=== PATIENT | female | born 1955 | race Caucasian/White ===

== ENCOUNTER 2016-05-23 13:08 | Emergency (ER) | payer MEDICARE, MEDICAID ==
[2016-05-23] MEDS ORDERED: GASTROGRAFIN SOLUTION 30ML (Q9963) As Ordered ONE (13:44)
[2016-05-23 13:58] LABS: BASO % 0.5 % (0.0-1.0); EOS # 0.2 K/mm3 (0.0-0.50); EOS % 2.4 % (0.0-3.0); LARGE UNSTAINED CELL # 0.1 K/mm3 (0.0-0.4); LARGE UNSTAINED CELL % 1.9 % (0.0-4.0); LYMPH # 3.5 K/mm3 (1.5-4.5); MEAN CORPUSCULAR HGB CONC 34.5 g/dl (32.0-36.5); MEAN CORPUSCULAR VOLUME 92.9 fl (80.0-96.0); MONO # 0.6 K/mm3 (0.0-0.8); MONO % 7.4 % (0.0-5.0); NEUTROPHILS # 3.3 K/mm3 (1.8-7.7); NEUTROPHILS % 43.7 % (36.0-66.0); PLATELET COUNT, AUTOMATED 180 k/mm3 (150-450); RED CELL DISTRIBUTION WIDTH 12.8 % (11.5-14.5); WHITE BLOOD COUNT 7.5 K/mm3 (4.0-10.0)
[2016-05-23 14:20] LABS: CALCIUM LEVEL 9.4 MG/DL (8.8-10.2); CREATININE FOR GFR 1.04 MG/DL (0.55-1.02); POTASSIUM SERUM 3.9 MEQ/L (3.5-5.1)
[2016-05-23] MEDS ORDERED: ISOVUE-370 76% 100ML VIAL (Q9967) As Ordered ONE (15:21)
--- NOTE | 2016-05-23 16:05 | REP ---
Clinical: Right lower quadrant mass. Technique: Axial contrast enhanced images from the lung bases to the pubic symphysis using oral and 100 ml Isovue 370 intravenous contrast material with coronal and sagittal re-formations. Comparison: 02/18/2015. Findings: The patient has mass corresponds to a [id number] ventral hernia containing multiple loops of nondilated small bowel (images 78 - 107). The remainder of the small large bowel is without obstruction or acute inflammatory process. Sigmoid diverticulosis without acute diverticulitis. No free air or ascites. Liver, spleen, pancreas, and bilateral adrenal glands are normal. The patient is status post cholecystectomy. Kidneys demonstrate bilateral hypodensities compatible with cysts measuring up to approximately 2 cm. Pelvis demonstrates normal bladder and age-appropriate uterus/adnexa. No adenopathy. No free fluid. No free air. Abdominal aorta and vasculature without aneurysm. Musculoskeletal structures demonstrate age-related degenerative changes. Impression: Ibfurahp-hm-there ventral hernia containing nondilated loops of small bowel. Sigmoid diverticulosis without acute diverticulitis. No free fluid. No acute intra-abdominal or pelvic pathology. Signed by Willis Og MD 05/23/2016 03:57 P
--- NOTE | 2016-05-23 16:22 | EDDOCDS ---
Nurse's Notes [facility] Name: Margarita Armenta Age: 61 yrs Sex: Female : 1955 Arrival Date: 05/23/2016 Time: 13:08 Bed I5 / M5 Private MD: Afia Lira NP Diagnosis: Other abdominal hernia Presentation: 05/23 13:15 Presenting complaint: Patient states: Caught a cold and was coughing. After coughing mcp noted small lump in lower abdomen. Adult Sepsis Screening: The patient does not have new or worsening altered mentation. Patient's respiratory rate is less than 22. Systolic blood pressure is greater than 100. Patient has a qSOFA score of 0- Negative Sepsis Screen. Suicide/Homicide risk assessment- the patient denies having any suicidal and/or homicidal ideations and does not present with any other emotional, behavioral or mental health complaints. 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 Transition of care: patient was not received from another setting of care. 13:15 Acuity: CLARICE Level 4 [facility] 13:15 Method Of Arrival: Walkin/Carried/Asstd [facility] Triage Assessment: 13:16 General: Appears in no apparent distress, Behavior is cooperative. Pain: Denies pain. [facility] HIV screening NA for this visit Offered previously. Neurological: No deficits noted. Respiratory: Airway is patent Respiratory effort is even, unlabored. Derm: Skin is pink, warm & dry. Historical: - Allergies: PENICILLINS; - Home Meds: 1. aspirin 81 mg Oral tab 1 tab once daily 2. Celexa 20 mg Oral tab 1 tab once daily 3. Zyprexa 10 mg Oral tab 1 tab once daily 4. Ventolin Rotahaler/Rotacaps Inhl as needed - PMHx: Anxiety; Depression; - PSHx: Cholecystectomy; Tonsillectomy; Oophorectomy- bilateral; - Social history: Smoking status: Patient uses tobacco products, light tobacco smoker. No barriers to communication noted, The patient speaks fluent Maltese. - Family history: Not pertinent. - : The pt / caregiver states he / she is not on anticoagulants. Home medication list is obtained from the patient. - Exposure Risk Screening:: None identified. Screenin:30 Screening information is obtained from the patient. Fall risk: No risks identified. ms18 Assistance ADL's: requires no assistance with activities of daily living. Abuse/DV Screen: The patient / caregiver reports he/she is: not in a situation that causes fear, pain or injury. Nutritional screening: No deficits noted. home support is adequate. 16:18 Advance Directives: Currently, there is no health care proxy. There is no active DNR k order. There is no living will. 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 Advance directive information has not previously been placed in an [facility] medical record. Assessment: 13:57 General: Appears in no apparent distress, obese female in NAD. skin warm and dry color jmk satisfactory. obese abdomen that is non distended with bowel sounds present x 4.. area of firmness to lower abdomen approx 2" diameter. Area increases with cough. without redness or ecchymosis. 14:30 General: Pt drinking her contrast with no issues at this time. Will continue to monitor ms18 pt. 15:30 General: Appears in no apparent distress, comfortable, Behavior is appropriate for age, ms18 cooperative, Pt returned from CT at this time. Will continue to monitor pt. Neurological: Level of Consciousness is awake, alert, obeys commands, Oriented to person, place, time. Respiratory: Airway is patent Respiratory effort is even, unlabored. Derm: Skin is pink, warm & dry. 16:18 General: Appears without pain. brisk gait. [facility] Vital Signs: 13:09 BP 145 / 61; Pulse 89; Resp 18; Temp 99.3; Pulse Ox 99% ; Weight 104.33 kg; Height 5 elp ft. 4 in. (162.56 cm); 16:18 BP 135 / 74; Pulse 70; Resp 16; Temp 97.5; jmk 13:09 Body Mass Index 39.48 (104.33 kg, 162.56 cm) [facility] Vitals: 13:09 Log In Time: May 23, 2016 at 13:07. [facility] ED Course: 13:09 Patient visited by Millicent Velazquez PCA. elp 13:09 Afia Lira is Private Physician. elp 13:09 Patient moved to Waiting elp 13:10 Patient visited by Millicent Velazquez PCA. elp 13:10 Patient moved to Pre RCE elp 13:15 Triage Initiated mcp 13:16 Kaylie Jackson PA-C [facility]. dt4 13:16 May Cheung MD is Attending Physician. dt4 13:17 Patient visited by Tianna Moreno, NICCI. [facility] 13:17 Patient visited by Kaylie Jackson PA-C. dt4 13:17 Patient moved to Triage 2 mcp 13:34 Patient moved to I5 / M5 mcp 13:56 [facility] Payment Agreement was scanned into [email or web address] and attached to record. lg 14:00 Patient visited by Fermin Rodney RN. mlb1 14:00 Inserted saline lock: 20 gauge in left antecubital area. jmk 14:41 Patient visited by Evelyn Rodas RN. ms18 15:30 Patient visited by Evelyn Rodas RN. ms18 15:30 The patient / caregiver is instructed regarding the plan of care and ED course. Patient ms18 has correct armband on for positive identification. Placed in gown. Property :Personal belongings accompany Pt. 16:00 You Bernal MD is Referral Physician. dt4 16:18 Discontinued lock intact, bleeding controlled, pressure dressing applied, No jmk redness/swelling at site. No procedures done that require assistance. Administered Medications: 14:00 Drug: Diatrizoate Meglumine & Sodium 10 ml [diatrizoate meglumine and diat.sodium 66 ms18 %-10 % oral solution (10 mL)] Route: PO; 14:31 Drug: Diatrizoate Meglumine & Sodium 10 ml [diatrizoate meglumine and diat.sodium 66 ms18 %-10 % oral solution (10 mL)] Route: PO; Order Results: Lab Order: Basic Metabolic Profile; SPEC'M 05/23/16 13:53 Test: GLUCOSE, FASTING; Value: 90; Range: 80-110; Units: MG/DL; Status: F Test: BLOOD UREA NITROGEN; Value: 16; Range: 7-18; Units: MG/DL; Status: F Test: CREATININE FOR GFR; Value: 1.04; Range: 0.55-1.02; Abnormal: Above high normal; Units: MG/DL; Status: F Test: GLOMERULAR FILTRATION RATE; Value: 57.0; Range: >45; Status: F Test: SODIUM LEVEL; Value: 141; Range: 136-145; Units: MEQ/L; Status: F Test: POTASSIUM SERUM; Value: 3.9; Range: 3.5-5.1; Units: MEQ/L; Status: F Test: CHLORIDE LEVEL; Value: 105; Range: 98-107; Units: MEQ/L; Status: F Test: CARBON DIOXIDE LEVEL; Value: 32; Range: 21-32; Units: MEQ/L; Status: F Test: ANION GAP; Value: 4; Range: 8-16; Abnormal: Below low normal; Units: MEQ/L; Status: F Test: CALCIUM LEVEL; Value: 9.4; Range: 8.8-10.2; Units: MG/DL; Status: F Test Note: ; Units are mL/min/1.73 m2 Chronic Kidney Disease Staging per NKF: Stage I & II GFR >=60 Normal to Mildly Decreased Stage III GFR 30-59 Moderately Decreased Stage IV GFR 15-29 Severely Decreased Stage V GFR <15 Very Little GFR Left ESRD GFR <15 on [employer] Lab Order: CBC with Diff; SPEC'M 05/23/16 13:53 Test: WHITE BLOOD COUNT; Value: 7.5; Range: 4.0-10.0; Units: K/mm3; Status: F Test: RED BLOOD COUNT; Value: 4.57; Range: 4.00-5.40; Units: M/mm3; Status: F Test: HEMOGLOBIN; Value: 14.6; Range: 12.0-16.0; Units: g/dl; Status: F Test: HEMATOCRIT; Value: 42.5; Range: 36.0-47.0; Units: %; Status: F Test: MEAN CORPUSCULAR VOLUME; Value: 92.9; Range: 80.0-96.0; Units: fl; Status: F Test: MEAN CORPUSCULAR HEMOGLOBIN; Value: 32.0; Range: 27.0-33.0; Units: pg; Status: F Test: MEAN CORPUSCULAR HGB CONC; Value: 34.5; Range: 32.0-36.5; Units: g/dl; Status: F Test: RED CELL DISTRIBUTION WIDTH; Value: 12.8; Range: 11.5-14.5; Units: %; Status: F Test: PLATELET COUNT, AUTOMATED; Value: 180; Range: 150-450; Units: k/mm3; Status: F Test: NEUTROPHILS %; Value: 43.7; Range: 36.0-66.0; Units: %; Status: F Test: LYMPH %; Value: 44.0; Range: 24.0-44.0; Units: %; Status: F Test: MONO %; Value: 7.4; Range: 0.0-5.0; Abnormal: Above high normal; Units: %; Status: F Test: EOS %; Value: 2.4; Range: 0.0-3.0; Units: %; Status: F Test: BASO %; Value: 0.5; Range: 0.0-1.0; Units: %; Status: F Test: LARGE UNSTAINED CELL %; Value: 1.9; Range: 0.0-4.0; Units: %; Status: F Test: NEUTROPHILS #; Value: 3.3; Range: 1.8-7.7; Units: K/mm3; Status: F Test: LYMPH #; Value: 3.5; Range: 1.5-4.5; Units: K/mm3; Status: F Test: MONO #; Value: 0.6; Range: 0.0-0.8; Units: K/mm3; Status: F Test: EOS #; Value: 0.2; Range: 0.0-0.50; Units: K/mm3; Status: F Test: BASO #; Value: 0.0; Range: 0.0-0.2; Units: K/mm3; Status: F Test: LARGE UNSTAINED CELL #; Value: 0.1; Range: 0.0-0.4; Units: K/mm3; Status: F Lab Order: CRP; SPEC'M 05/23/16 13:53 Test: C REACTIVE PROTEIN QUANTITATIV; Value: 0.80; Range: 0.00-0.30; Abnormal: Above high normal; Units: MG/DL; Status: F Outcome: 16:00 Discharge ordered by Provider. dt4 16:18 Discharge Assessment: Patient awake, alert and oriented x 3. No cognitive and/or jmk functional deficits noted. Patient verbalized understanding of disposition instructions. patient administered narcotics - no. The following High Risk Discharge criteria are identified: None. Discharged to home ambulatory. Condition: good. Discharge instructions given to patient, Instructed on discharge instructions, follow up and referral plans. medication usage, no driving heavy equipment, Demonstrated understanding of instructions, medications, Pt was receptive of discharge instructions/ teaching. CT Study completed. 16:20 Patient left the ED. krystal Signatures: Salomón CariasRN RN Tianna Meier RN RN Curtis Guzman, Reg Reg lg Fermin Rodney RN RN mlb1 Millicent Velazquez, HUMAN RESOURCE OFFICER HUMAN RESOURCE OFFICER maryp Kaylie Jackson, PA-C PA-C dt4 Evelyn Rodas RN RN ms18 Corrections: (The following items were deleted from the chart) 15:33 14:30 Inserted saline lock: 20 gauge in left antecubital area krystal rice MTDD
--- NOTE | 2016-05-23 16:22 | EDDOCDS ---
Physician Documentation [facility] Name: Margarita Armenta Age: 61 yrs Sex: Female : 1955 Arrival Date: 05/23/2016 Time: 13:08 Bed I5 / M5 Private MD: Afia Lira NP Disposition: 05/23/16 16:00 Discharged to Home/Self Care. Impression: Other abdominal hernia. - Condition is Stable. - Discharge Instructions: Hernia. - Medication Reconciliation, Local Pharmacy Hours form. - Follow up: Emergency Department; When: As needed; Reason: Worsening of conditions. Follow up: You Bernal; When: Call to arrange an appointment; Reason: Wound/Symptom Recheck, Recheck today's complaints, Continuance of care, To establish care. - Problem is new. - Symptoms are unchanged. - Notes: PLEASE CALL DR. BERNAL'S OFFICE TOMORROW TO SCHEDULE AN APPOINTMENT TO BE SEEN. IT IS IMPORTANT TO GET A HERNIA FIXED BEFORE IT BECOMES A SURGICAL EMERGENCY. HIS OFFICE CAN SCHEDULE YOU FOR AN OFFICE CONSULT AND THEY WILL DISCUSS OPTIONS WITH YOU TO FIX THIS HERNIA. IF YOU ARE HAVING ANY WORSENING SYMPTOMS, INCLUDING PAIN, N/V, FEVER, PLEASE RETURN TO THE ER AT THAT TIME. Historical: - Allergies: PENICILLINS; - Home Meds: 1. aspirin 81 mg Oral tab 1 tab once daily 2. Celexa 20 mg Oral tab 1 tab once daily 3. Zyprexa 10 mg Oral tab 1 tab once daily 4. Ventolin Rotahaler/Rotacaps Inhl as needed - PMHx: Anxiety; Depression; - PSHx: Cholecystectomy; Tonsillectomy; Oophorectomy- bilateral; - Social history: Smoking status: Patient uses tobacco products, light tobacco smoker. No barriers to communication noted, The patient speaks fluent [place]. - Family history: Not pertinent. - : The pt / caregiver states he / she is not on anticoagulants. Home medication list is obtained from the patient. - Exposure Risk Screening:: None identified. Vital Signs: 05/23 13:09 BP 145 / 61; Pulse 89; Resp 18; Temp 99.3; Pulse Ox 99% ; Weight 104.33 kg / 230.01 elp lbs; Height 5 ft. 4 in. (162.56 cm); 16:18 BP 135 / 74; Pulse 70; Resp 16; Temp 97.5; jmk 13:09 Body Mass Index 39.48 (104.33 kg, 162.56 cm) elp MDM: 13:30 IV Saline Lock ordered. dt4 13:30 Undress patient appropriately for examination ordered. dt4 13:31 Basic Metabolic Profile Ordered. EDMS 13:31 CBC with Diff Ordered. EDMS 13:31 CRP Ordered. EDMS 13:31 CT ABD & PELVIS: IV and Oral Contrast Ordered. EDMS 13:38 Financial registration complete. lg 13:56 [facility] Payment Agreement was scanned into [employer] and attached to record. lg 14:02 Diatrizoate Meglumine & Sodium Liquid 10 ml PO once; mix in 290cc of water, give at ms18 1400 ordered. 14:02 Diatrizoate Meglumine & Sodium Liquid 10 ml PO once; mix in 290cc of water, give at ms18 1430 ordered. Administered Medications: 14:00 Drug: Diatrizoate Meglumine & Sodium 10 ml [diatrizoate meglumine and diat.sodium 66 ms18 %-10 % oral solution (10 mL)] Route: PO; 14:31 Drug: Diatrizoate Meglumine & Sodium 10 ml [diatrizoate meglumine and diat.sodium 66 ms18 %-10 % oral solution (10 mL)] Route: PO; Signatures: Dispatcher [employer] Salomón Carty,Tianna Escobar RN, RN RN mcp Ganter, LoriLee, Reg Reg lg Kaylie Jackson, PAGriffin PAGriffin dt4 Evelyn Rodas RN RN ms18 The chart was reviewed and I authenticate all verbal orders and agree with the evaluation and treatment provided.Attachments: 13:56 [facility] Payment Agreement lg MTDD
--- NOTE | 2016-05-25 17:21 | EDDOCDS ---
Physician Documentation [facility] Name: Margarita Armenta Age: 61 yrs Sex: Female : 1955 Arrival Date: 05/23/2016 Time: 13:08 Bed I5 / M5 Private MD: Afia Lira NP Disposition: 05/23/16 16:00 Discharged to Home/Self Care. Impression: Other abdominal hernia. - Condition is Stable. - Discharge Instructions: Hernia. - Medication Reconciliation, Local Pharmacy Hours form. - Follow up: Emergency Department; When: As needed; Reason: Worsening of conditions. Follow up: You Bernal; When: Call to arrange an appointment; Reason: Wound/Symptom Recheck, Recheck today's complaints, Continuance of care, To establish care. - Problem is new. - Symptoms are unchanged. - Notes: PLEASE CALL DR. BERNAL'S OFFICE TOMORROW TO SCHEDULE AN APPOINTMENT TO BE SEEN. IT IS IMPORTANT TO GET A HERNIA FIXED BEFORE IT BECOMES A SURGICAL EMERGENCY. HIS OFFICE CAN SCHEDULE YOU FOR AN OFFICE CONSULT AND THEY WILL DISCUSS OPTIONS WITH YOU TO FIX THIS HERNIA. IF YOU ARE HAVING ANY WORSENING SYMPTOMS, INCLUDING PAIN, N/V, FEVER, PLEASE RETURN TO THE ER AT THAT TIME. Historical: - Allergies: PENICILLINS; - Home Meds: 1. aspirin 81 mg Oral tab 1 tab once daily 2. Celexa 20 mg Oral tab 1 tab once daily 3. Zyprexa 10 mg Oral tab 1 tab once daily 4. Ventolin Rotahaler/Rotacaps Inhl as needed - PMHx: Anxiety; Depression; - PSHx: Cholecystectomy; Tonsillectomy; Oophorectomy- bilateral; - Social history: Smoking status: Patient uses tobacco products, light tobacco smoker. No barriers to communication noted, The patient speaks fluent Stat[place]. - Family history: Not pertinent. - : The pt / caregiver states he / she is not on anticoagulants. Home medication list is obtained from the patient. - Exposure Risk Screening:: None identified. Vital Signs: 05/23 13:09 BP 145 / 61; Pulse 89; Resp 18; Temp 99.3; Pulse Ox 99% ; Weight 104.33 kg / 230.01 elp lbs; Height 5 ft. 4 in. (162.56 cm); 16:18 BP 135 / 74; Pulse 70; Resp 16; Temp 97.5; jmk 13:09 Body Mass Index 39.48 (104.33 kg, 162.56 cm) elp MDM: 13:30 IV Saline Lock ordered. dt4 13:30 Undress patient appropriately for examination ordered. dt4 13:31 Basic Metabolic Profile Ordered. EDMS 13:31 CBC with Diff Ordered. EDMS 13:31 CRP Ordered. EDMS 13:31 CT ABD & PELVIS: IV and Oral Contrast Ordered. EDMS 13:38 Financial registration complete. lg 13:56 [facility] Payment Agreement was scanned into [employer] and attached to record. lg 14:02 Diatrizoate Meglumine & Sodium Liquid 10 ml PO once; mix in 290cc of water, give at ms18 1400 ordered. 14:02 Diatrizoate Meglumine & Sodium Liquid 10 ml PO once; mix in 290cc of water, give at ms18 1430 ordered. 05/24 17:43 T-Sheet-- Draft Copy was scanned into [employer] and attached to record. klr Administered Medications: 05/23 14:00 Drug: Diatrizoate Meglumine & Sodium 10 ml [diatrizoate meglumine and diat.sodium 66 ms18 %-10 % oral solution (10 mL)] Route: PO; 14:31 Drug: Diatrizoate Meglumine & Sodium 10 ml [diatrizoate meglumine and diat.sodium 66 ms18 %-10 % oral solution (10 mL)] Route: PO; Signatures: Dispatcher [employer] EDMS Salomón Carias RN RN jmk Peters, Mary RN Curtis Rudd mcp, Reg Reg Kaylie Jackson PA-C PA-C dtEvelyn Jeff RN RN ms18 April Posey klr The chart was reviewed and I authenticate all verbal orders and agree with the evaluation and treatment provided.Attachments: 13:56 [facility] Payment Agreement lg 05/24 17:43 T-Sheet-- Draft Copy klr Chart Complete MTDD
--- NOTE | 2016-05-25 17:21 | EDDOCDS ---
Nurse's Notes [facility] Name: Margarita Armenta Age: 61 yrs Sex: Female : 1955 Arrival Date: 05/23/2016 Time: 13:08 Bed I5 / M5 Private MD: Afia Lira NP Diagnosis: Other abdominal hernia Presentation: 05/23 13:15 Presenting complaint: Patient states: Caught a cold and was coughing. After coughing mcp noted small lump in lower abdomen. Adult Sepsis Screening: The patient does not have new or worsening altered mentation. Patient's respiratory rate is less than 22. Systolic blood pressure is greater than 100. Patient has a qSOFA score of 0- Negative Sepsis Screen. Suicide/Homicide risk assessment- the patient denies having any suicidal and/or homicidal ideations and does not present with any other emotional, behavioral or mental health complaints. Status: Patient is not a line service attendant or dependent. Transition of care: patient was not received from another setting of care. 13:15 Acuity: CLARICE Level 4 [facility] 13:15 Method Of Arrival: Walkin/Carried/Asstd [facility] Triage Assessment: 13:16 General: Appears in no apparent distress, Behavior is cooperative. Pain: Denies pain. [facility] HIV screening NA for this visit Offered previously. Neurological: No deficits noted. Respiratory: Airway is patent Respiratory effort is even, unlabored. Derm: Skin is pink, warm & dry. Historical: - Allergies: PENICILLINS; - Home Meds: 1. aspirin 81 mg Oral tab 1 tab once daily 2. Celexa 20 mg Oral tab 1 tab once daily 3. Zyprexa 10 mg Oral tab 1 tab once daily 4. Ventolin Rotahaler/Rotacaps Inhl as needed - PMHx: Anxiety; Depression; - PSHx: Cholecystectomy; Tonsillectomy; Oophorectomy- bilateral; - Social history: Smoking status: Patient uses tobacco products, light tobacco smoker. No barriers to communication noted, The patient speaks fluent Portuguese. - Family history: Not pertinent. - : The pt / caregiver states he / she is not on anticoagulants. Home medication list is obtained from the patient. - Exposure Risk Screening:: None identified. Screenin:30 Screening information is obtained from the patient. Fall risk: No risks identified. ms18 Assistance ADL's: requires no assistance with activities of daily living. Abuse/DV Screen: The patient / caregiver reports he/she is: not in a situation that causes fear, pain or injury. Nutritional screening: No deficits noted. home support is adequate. 16:18 Advance Directives: Currently, there is no health care proxy. There is no active DNR k order. There is no living will. There is no Power of Electrical Engineering Teacher. Advance directive information has not previously been placed in an [facility] medical record. Assessment: 13:57 General: Appears in no apparent distress, obese female in NAD. skin warm and dry color jmk satisfactory. obese abdomen that is non distended with bowel sounds present x 4.. area of firmness to lower abdomen approx 2" diameter. Area increases with cough. without redness or ecchymosis. 14:30 General: Pt drinking her contrast with no issues at this time. Will continue to monitor ms18 pt. 15:30 General: Appears in no apparent distress, comfortable, Behavior is appropriate for age, ms18 cooperative, Pt returned from CT at this time. Will continue to monitor pt. Neurological: Level of Consciousness is awake, alert, obeys commands, Oriented to person, place, time. Respiratory: Airway is patent Respiratory effort is even, unlabored. Derm: Skin is pink, warm & dry. 16:18 General: Appears without pain. brisk gait. [facility] Vital Signs: 13:09 BP 145 / 61; Pulse 89; Resp 18; Temp 99.3; Pulse Ox 99% ; Weight 104.33 kg; Height 5 elp ft. 4 in. (162.56 cm); 16:18 BP 135 / 74; Pulse 70; Resp 16; Temp 97.5; jmk 13:09 Body Mass Index 39.48 (104.33 kg, 162.56 cm) [facility] Vitals: 13:09 Log In Time: May 23, 2016 at 13:07. [facility] ED Course: 13:09 Patient visited by Millicent Velazquez PCA. elp 13:09 Afia Lira is Private Physician. elp 13:09 Patient moved to Waiting elp 13:10 Patient visited by Millicent Velazquez PCA. elp 13:10 Patient moved to Pre RCE elp 13:15 Triage Initiated mcp 13:16 [facility] dt4 13:16 May Cheung MD is Attending Physician. dt4 13:17 Patient visited by Tianna Moreno, NICCI. [facility] 13:17 Patient visited by Kaylie Jackson PA-C. dt4 13:17 Patient moved to Triage 2 mcp 13:34 Patient moved to I5 / M5 mcp 13:56 [facility] Payment Agreement was scanned into [employer] and attached to record. lg 14:00 Patient visited by Fermin Rodney RN. mlb1 14:00 Inserted saline lock: 20 gauge in left antecubital area. jmk 14:41 Patient visited by Evelyn Rodas RN. ms18 15:30 Patient visited by Evelyn Rodas RN. ms18 15:30 The patient / caregiver is instructed regarding the plan of care and ED course. Patient ms18 has correct armband on for positive identification. Placed in gown. Property :Personal belongings accompany Pt. 16:00 You Bernal MD is Referral Physician. dt4 16:18 Discontinued lock intact, bleeding controlled, pressure dressing applied, No jmk redness/swelling at site. No procedures done that require assistance. 16:33 CT ABD & PELVIS: IV and Oral Contrast Returned. EDMS 05/24 17:43 T-Sheet-- Draft Copy was scanned into [employer] and attached to record. klr Administered Medications: 05/23 14:00 Drug: Diatrizoate Meglumine & Sodium 10 ml [diatrizoate meglumine and diat.sodium 66 ms18 %-10 % oral solution (10 mL)] Route: PO; 14:31 Drug: Diatrizoate Meglumine & Sodium 10 ml [diatrizoate meglumine and diat.sodium 66 ms18 %-10 % oral solution (10 mL)] Route: PO; Order Results: Lab Order: Basic Metabolic Profile; SPEC'M 05/23/16 13:53 Test: GLUCOSE, FASTING; Value: 90; Range: 80-110; Units: MG/DL; Status: F Test: BLOOD UREA NITROGEN; Value: 16; Range: 7-18; Units: MG/DL; Status: F Test: CREATININE FOR GFR; Value: 1.04; Range: 0.55-1.02; Abnormal: Above high normal; Units: MG/DL; Status: F Test: GLOMERULAR FILTRATION RATE; Value: 57.0; Range: >45; Status: F Test: SODIUM LEVEL; Value: 141; Range: 136-145; Units: MEQ/L; Status: F Test: POTASSIUM SERUM; Value: 3.9; Range: 3.5-5.1; Units: MEQ/L; Status: F Test: CHLORIDE LEVEL; Value: 105; Range: 98-107; Units: MEQ/L; Status: F Test: CARBON DIOXIDE LEVEL; Value: 32; Range: 21-32; Units: MEQ/L; Status: F Test: ANION GAP; Value: 4; Range: 8-16; Abnormal: Below low normal; Units: MEQ/L; Status: F Test: CALCIUM LEVEL; Value: 9.4; Range: 8.8-10.2; Units: MG/DL; Status: F Test Note: ; Units are mL/min/1.73 m2 Chronic Kidney Disease Staging per NKF: Stage I & II GFR >=60 Normal to Mildly Decreased Stage III GFR 30-59 Moderately Decreased Stage IV GFR 15-29 Severely Decreased Stage V GFR <15 Very Little GFR Left ESRD GFR <15 on AIRLINE HOSTESS Lab Order: CBC with Diff; SPEC'M 05/23/16 13:53 Test: WHITE BLOOD COUNT; Value: 7.5; Range: 4.0-10.0; Units: K/mm3; Status: F Test: RED BLOOD COUNT; Value: 4.57; Range: 4.00-5.40; Units: M/mm3; Status: F Test: HEMOGLOBIN; Value: 14.6; Range: 12.0-16.0; Units: g/dl; Status: F Test: HEMATOCRIT; Value: 42.5; Range: 36.0-47.0; Units: %; Status: F Test: MEAN CORPUSCULAR VOLUME; Value: 92.9; Range: 80.0-96.0; Units: fl; Status: F Test: MEAN CORPUSCULAR HEMOGLOBIN; Value: 32.0; Range: 27.0-33.0; Units: pg; Status: F Test: MEAN CORPUSCULAR HGB CONC; Value: 34.5; Range: 32.0-36.5; Units: g/dl; Status: F Test: RED CELL DISTRIBUTION WIDTH; Value: 12.8; Range: 11.5-14.5; Units: %; Status: F Test: PLATELET COUNT, AUTOMATED; Value: 180; Range: 150-450; Units: k/mm3; Status: F Test: NEUTROPHILS %; Value: 43.7; Range: 36.0-66.0; Units: %; Status: F Test: LYMPH %; Value: 44.0; Range: 24.0-44.0; Units: %; Status: F Test: MONO %; Value: 7.4; Range: 0.0-5.0; Abnormal: Above high normal; Units: %; Status: F Test: EOS %; Value: 2.4; Range: 0.0-3.0; Units: %; Status: F Test: BASO %; Value: 0.5; Range: 0.0-1.0; Units: %; Status: F Test: LARGE UNSTAINED CELL %; Value: 1.9; Range: 0.0-4.0; Units: %; Status: F Test: NEUTROPHILS #; Value: 3.3; Range: 1.8-7.7; Units: K/mm3; Status: F Test: LYMPH #; Value: 3.5; Range: 1.5-4.5; Units: K/mm3; Status: F Test: MONO #; Value: 0.6; Range: 0.0-0.8; Units: K/mm3; Status: F Test: EOS #; Value: 0.2; Range: 0.0-0.50; Units: K/mm3; Status: F Test: BASO #; Value: 0.0; Range: 0.0-0.2; Units: K/mm3; Status: F Test: LARGE UNSTAINED CELL #; Value: 0.1; Range: 0.0-0.4; Units: K/mm3; Status: F Lab Order: CRP; SPEC'M 05/23/16 13:53 Test: C REACTIVE PROTEIN QUANTITATIV; Value: 0.80; Range: 0.00-0.30; Abnormal: Above high normal; Units: MG/DL; Status: F Radiology Order: CT ABD & PELVIS: IV and Oral Contrast Test: CT ABD & PELVIS: IV and Oral Contrast REASON FOR EXAMINATION: RLQ "LUMP", ?HERNIA; Clinical: Right lower quadrant mass.; ; Technique: Axial contrast enhanced images from the lung bases to the pubic; symphysis using oral and 100 ml Isovue 370 intravenous contrast material with; coronal and sagittal re-formations.; ; Comparison: 02/18/2015.; ; Findings:; The patient has mass corresponds to a amozmwzy-cv-tvncl ventral hernia containing; multiple loops of nondilated small bowel (images 78 - 107). The remainder of the; small large bowel is without obstruction or acute inflammatory process. Sigmoid; diverticulosis without acute diverticulitis. No free air or ascites.; ; Liver, spleen, pancreas, and bilateral adrenal glands are normal. The patient is; status post cholecystectomy. Kidneys demonstrate bilateral hypodensities; compatible with cysts measuring up to approximately 2 cm. Pelvis demonstrates; normal bladder and age-appropriate uterus/adnexa. No adenopathy. No free fluid.; No free air. Abdominal aorta and vasculature without aneurysm. Musculoskeletal; structures demonstrate age-related degenerative changes.; ; Impression:; Jluuiude-ig-ydbtk ventral hernia containing nondilated loops of small bowel.; Sigmoid diverticulosis without acute diverticulitis.; No free fluid. No acute intra-abdominal or pelvic pathology.; ; ; Signed by; Willis Og MD 05/23/2016 03:57 P; Outcome: 16:00 Discharge ordered by Provider. dt4 16:18 Discharge Assessment: Patient awake, alert and oriented x 3. No cognitive and/or jmk functional deficits noted. Patient verbalized understanding of disposition instructions. patient administered narcotics - no. The following High Risk Discharge criteria are identified: None. Discharged to home ambulatory. Condition: good. Discharge instructions given to patient, Instructed on discharge instructions, follow up and referral plans. medication usage, no driving heavy equipment, Demonstrated understanding of instructions, medications, Pt was receptive of discharge instructions/ teaching. CT Study completed. 16:20 Patient left the ED. krystal Signatures: Dispatcher [employer] EDMS Salomón CariasRN Tianna Escobar RN RN mcp Ganter, LoriLee, Fermin Saenz lg RN RN mlb1 Marcus, Millicent, PREMISES TECHNICIAN PREMISES TECHNICIAN elp Renetta, Kaylie, PA-C PA-C dt4 Evelyn Rodas RN RN ms18 April Posey Corrections: (The following items were deleted from the chart) 15:33 14:30 Inserted saline lock: 20 gauge in left antecubital area krystal rice Chart Complete MTDD
--- NOTE | 2016-05-25 17:21 | EDDOCDS ---
Physician Documentation [facility] Name: Margarita Armenta Age: 61 yrs Sex: Female : 1955 Arrival Date: 05/23/2016 Time: 13:08 Bed I5 / M5 Private MD: Afia Lira NP Disposition: 05/23/16 16:00 Discharged to Home/Self Care. Impression: Other abdominal hernia. - Condition is Stable. - Discharge Instructions: Hernia. - Medication Reconciliation, Local Pharmacy Hours form. - Follow up: Emergency Department; When: As needed; Reason: Worsening of conditions. Follow up: You Bernal; When: Call to arrange an appointment; Reason: Wound/Symptom Recheck, Recheck today's complaints, Continuance of care, To establish care. - Problem is new. - Symptoms are unchanged. - Notes: PLEASE CALL DR. BERNAL'S OFFICE TOMORROW TO SCHEDULE AN APPOINTMENT TO BE SEEN. IT IS IMPORTANT TO GET A HERNIA FIXED BEFORE IT BECOMES A SURGICAL EMERGENCY. HIS OFFICE CAN SCHEDULE YOU FOR AN OFFICE CONSULT AND THEY WILL DISCUSS OPTIONS WITH YOU TO FIX THIS HERNIA. IF YOU ARE HAVING ANY WORSENING SYMPTOMS, INCLUDING PAIN, N/V, FEVER, PLEASE RETURN TO THE ER AT THAT TIME. Historical: - Allergies: PENICILLINS; - Home Meds: 1. aspirin 81 mg Oral tab 1 tab once daily 2. Celexa 20 mg Oral tab 1 tab once daily 3. Zyprexa 10 mg Oral tab 1 tab once daily 4. Ventolin Rotahaler/Rotacaps Inhl as needed - PMHx: Anxiety; Depression; - PSHx: Cholecystectomy; Tonsillectomy; Oophorectomy- bilateral; - Social history: Smoking status: Patient uses tobacco products, light tobacco smoker. No barriers to communication noted, The patient speaks fluent Bulgarian. - Family history: Not pertinent. - : The pt / caregiver states he / she is not on anticoagulants. Home medication list is obtained from the patient. - Exposure Risk Screening:: None identified. Vital Signs: 05/23 13:09 BP 145 / 61; Pulse 89; Resp 18; Temp 99.3; Pulse Ox 99% ; Weight 104.33 kg / 230.01 elp lbs; Height 5 ft. 4 in. (162.56 cm); 16:18 BP 135 / 74; Pulse 70; Resp 16; Temp 97.5; jmk 13:09 Body Mass Index 39.48 (104.33 kg, 162.56 cm) elp MDM: 13:30 IV Saline Lock ordered. dt4 13:30 Undress patient appropriately for examination ordered. dt4 13:31 Basic Metabolic Profile Ordered. EDMS 13:31 CBC with Diff Ordered. EDMS 13:31 CRP Ordered. EDMS 13:31 CT ABD & PELVIS: IV and Oral Contrast Ordered. EDMS 13:38 Financial registration complete. lg 13:56 [facility] Payment Agreement was scanned into [employer] and attached to record. lg 14:02 Diatrizoate Meglumine & Sodium Liquid 10 ml PO once; mix in 290cc of water, give at ms18 1400 ordered. 14:02 Diatrizoate Meglumine & Sodium Liquid 10 ml PO once; mix in 290cc of water, give at ms18 1430 ordered. 05/24 17:43 T-Sheet-- Draft Copy was scanned into [employer] and attached to record. klr Administered Medications: 05/23 14:00 Drug: Diatrizoate Meglumine & Sodium 10 ml [diatrizoate meglumine and diat.sodium 66 ms18 %-10 % oral solution (10 mL)] Route: PO; 14:31 Drug: Diatrizoate Meglumine & Sodium 10 ml [diatrizoate meglumine and diat.sodium 66 ms18 %-10 % oral solution (10 mL)] Route: PO; Signatures: Dispatcher [employer] EDMS Salomón Carias RN RN jmk Peters, Mary RN Curtis Rudd mcp, Reg Reg Kaylie Jackson PA-C PA-C dtEvelyn Jeff RN RN ms18 April Posey klr The chart was reviewed and I authenticate all verbal orders and agree with the evaluation and treatment provided.Attachments: 13:56 [facility] Payment Agreement lg 05/24 17:43 T-Sheet-- Draft Copy klr Chart Complete MTDD
== END 2016-05-23 16:20 | disposition home or self-care (01) ==
LOC: M ED 13:08
DX: K43.9 Ventral hernia without obstruction or gangrene (principal); R05 Cough; F32.9 Major depressive disorder, single episode, unspecified; F41.9 Anxiety disorder, unspecified; F17.210 Nicotine dependence, cigarettes, uncomplicated; Z79.82 Long term (current) use of aspirin; Z79.899 Other long term (current) drug therapy; Z88.0 Allergy status to penicillin
CPT/HCPCS: 36415; 71020; 74177; 80053; 85025; 86140; 99284; Q9963; Q9967

== ENCOUNTER → 2016-05-23 | Outpatient (CLI) | payer MEDICARE, MEDICAID ==
[~2016-05-23] MED LIST: ASPI81TA21 PO; ASPI81TA85 PO; CALC-210 PO; CELE10TA PO; CIPR500T89 PO; CITA20TA4 PO; FLAG500T PO; NORCOTAB PO; VITA100066 PO; ZYPR10TA PO
--- NOTE | 2016-05-23 13:11 | REP ---
Clinical: Cough . Comparison: 02/21/2015 . Technique: PA and lateral. Findings: The mediastinum and cardiac silhouette are normal. The lung munguia are clear and without acute consolidation, effusion, or pneumothorax. The skeletal structures are intact and normal. Impression: 1. No acute cardiopulmonary process. If the patient remains symptomatic, chest CT may be warranted for further investigation. Signed by Willis Og MD 05/23/2016 01:04 P
[2016-05-23 13:12] LABS: BASO % 0.6 % (0.0-1.0); EOS # 0.1 K/mm3 (0.0-0.50); EOS % 1.5 % (0.0-3.0); LARGE UNSTAINED CELL # 0.2 K/mm3 (0.0-0.4); LARGE UNSTAINED CELL % 2.2 % (0.0-4.0); LYMPH # 3.5 K/mm3 (1.5-4.5); LYMPH % 44.3 % (24.0-44.0); MEAN CORPUSCULAR HEMOGLOBIN 31.4 pg (27.0-33.0); MEAN CORPUSCULAR HGB CONC 33.7 g/dl (32.0-36.5); MEAN CORPUSCULAR VOLUME 93.4 fl (80.0-96.0); MONO # 0.7 K/mm3 (0.0-0.8); NEUTROPHILS # 3.2 K/mm3 (1.8-7.7); NEUTROPHILS % 42.4 % (36.0-66.0); PLATELET COUNT, AUTOMATED 185 k/mm3 (150-450); RED CELL DISTRIBUTION WIDTH 12.8 % (11.5-14.5); WHITE BLOOD COUNT 7.5 K/mm3 (4.0-10.0)
[2016-05-23 13:48] LABS: ALBUMIN 3.7 GM/DL (3.2-5.2); ALBUMIN/GLOBULIN RATIO 0.86 (1.00-1.93); ALKALINE PHOSPHATASE 111 U/L (45-117); ALT/SGPT 27 U/L (12-78); ANION GAP 4 MEQ/L (8-16); AST/SGOT 25 U/L (15-37); BILIRUBIN,TOTAL 0.3 MG/DL (0.2-1.0); BLOOD UREA NITROGEN 14 MG/DL (7-18); CALCIUM LEVEL 9.3 MG/DL (8.8-10.2); CARBON DIOXIDE LEVEL 32 MEQ/L (21-32); CHLORIDE LEVEL 107 MEQ/L (98-107); CREATININE FOR GFR 0.99 MG/DL (0.55-1.02); GLOMERULAR FILTRATION RATE > 60.0 (>45); GLUCOSE, FASTING 89 MG/DL (80-110); POTASSIUM SERUM 4.2 MEQ/L (3.5-5.1); SODIUM LEVEL 143 MEQ/L (136-145)
== END ==
LOC: M LAB 12:33
PROVIDERS: ATTEND Nurse Practitioner Family
DX: R05 Cough (principal)

== ENCOUNTER → 2016-06-05 | Outpatient (CLI) | payer MEDICAID, MEDICARE ==
--- NOTE | 2016-06-05 15:07 | REP ---
LOW-DOSE CHEST CT STUDY: NONCONTRAST: HISTORY: Tobacco use. Lung cancer screening study. Chest x-ray from May 23, 2016 is compared. No comparison chest CT study. 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 There is a small bullous, 2.2 cm in diameter, along the medial aspect of the mediastinum in the left upper lobe. Lung munguia are otherwise clear. No other significant abnormality. IMPRESSION: Negative low-dose screening lung CT. 2.2 cm left upper lobe bullous noted incidentally. Signed by Julián Santos MD 06/05/2016 03:23 P
== END ==
LOC: M RAD 13:13
PROVIDERS: ATTEND Nurse Practitioner Family
DX: Z12.2 Encounter for screening for malignant neoplasm of respiratory organs (principal); Z87.891 Personal history of nicotine dependence

== ENCOUNTER → 2016-06-16 | Outpatient (CLI) | payer MEDICAID, MEDICARE ==
[~2016-06-16] MED LIST changes: +ALBU17IN INH
--- NOTE | 2016-06-16 10:47 | PFTRPT ---
PULMONARY FUNCTION REPORT SERVICE DATE: 06/16/16 ORDERED BY: LI HERNANDEZ NP Spirometry: Excellent technical quality. The forced vital capacity is reduced. The FEV1 is borderline in proportion. The obstructive index is, therefore, borderline, as well. Flow Volume Loop: The expiratory limb of the flow volume loop does suggest flow rate limitation. No significant bronchodilator response is identified. Lung Volumes: The total lung capacity is normal. The residual volume suggests air trapping. Diffusion Capacity: The diffusion capacity is supranormal. Hemoglobin: No hemoglobin is available for correction. Airway Mechanics: Airways resistance is elevated with a concomitant decrease in airway conductance. Impression: Nonspecific flow rate reduction with underlying air trapping. Supranormal diffusion requires clinical correlation. MTDD
== END ==
LOC: M CARPUL 10:05
PROVIDERS: ATTEND Nurse Practitioner Family
DX: R06.02 Shortness of breath (principal); R05 Cough; R91.8 Other nonspecific abnormal finding of lung field

== ENCOUNTER 2016-06-26 05:57 | Day surgery (SDC) | payer MEDICARE, MEDICAID ==
[2016-06-26] VITALS (7 sets, daily range): BP systolic 105–144; BP diastolic 50–70
[~2016-06-26] VITALS: Ht 163.8 cm; Wt 102.1 kg
[2016-06-26] MEDS ORDERED: LR 1,000 ML IV SCH ×2 (06:15→10:15)
[2016-06-26] MEDS ORDERED: GLYCOPYRROLATE INJ 0.2 MG/ML 2 ML VIAL As Ordered ONE ×2 (06:21→06:22)
[2016-06-26] MEDS ORDERED: ONDANSETRON 4MG/2ML VIAL (J2405) As Ordered ONE (06:21)
[2016-06-26] MEDS ORDERED: KETOROLAC 60 MG/2 ML VIAL (J1885) As Ordered ONE (06:21)
[2016-06-26] MEDS ORDERED: ROCURONIUM BROMIDE 50 MG/5 ML VIAL As Ordered ONE (06:21)
[2016-06-26] MEDS ORDERED: dexameTHASONE 4 MG/ML 1ML VIAL (J1100) As Ordered ONE (06:21)
[2016-06-26] MEDS ORDERED: PROPOFOL 200 MG/20 ML VIAL As Ordered ONE (06:21)
[2016-06-26] MEDS ORDERED: LIDOCAINE 2% INJ 100 MG/5 ML SDV (FOR ANES.) As Ordered ONE (06:21)
[2016-06-26] MEDS ORDERED: NEOSTIGMINE 1MG/ML 5 ML SYRINGE (J2710) As Ordered ONE (06:22)
[2016-06-26] MEDS ORDERED: ceFAZolin SOD 1 GM in D5W MINI-BAG PLUS 50 ML IV ONE (06:30)
[2016-06-26] MEDS: BUPIVACAINE/EPIN 0.25% 30 ML VIAL As Ordered ONE ×2 (07:59→08:13)
[2016-06-26] MEDS ORDERED: BUPIVACAINE HCL 0.25% 30 ML VIAL As Ordered ONE (08:04)
[2016-06-26] MEDS ORDERED: MIDAZOLAM INJ 2 MG/2 ML VIAL (J2250) As Ordered ONE (08:04)
[2016-06-26] MEDS ORDERED: fentaNYL 250 MCG/5 ML INJECTION (J3010) As Ordered ONE (08:04)
[2016-06-26] MEDS ORDERED: BUPIVACAINE LIPOSOME/PF 1.3% 20 ML VIAL (13.3MG/ML)(EXPAREL) As Ordered ONE (08:05)
[2016-06-26] MEDS ORDERED: NALOXONE INJ 0.4 MG/1 ML VIAL (J2310) As Ordered ONE (09:04)
--- NOTE | 2016-06-26 09:08 | RO ---
DATE OF PROCEDURE: 06/26/2016 PREOPERATIVE DIAGNOSIS: Incisional hernia. POSTOPERATIVE DIAGNOSIS: Incisional hernia. PROCEDURE: Laparoscopic incisional hernia repair with Ventralight mesh. SURGEON: Dr. You Bernal PARKING LINE PAINTER: ANESTHESIA: General endotracheal anesthesia. ESTIMATED BLOOD LOSS: Minimal. FLUIDS: Crystalloid. BRIEF PROCEDURE SUMMARY: The patient was brought to the operating room and was given general anesthesia. After adequate anesthesia and preoperative antibiotics were given, the patient was prepped and draped in the usual sterile fashion. Next, a left upper quadrant incision was made with a skin knife. The Veress needle was placed into the abdominal cavity after a few tries. One was preperitoneal or within the muscle itself and then it was able to be inserted without difficulty. The pressures went up to 15 and then the 5 mm 0 degrees scope was used and a 5 mm trocar to go through the abdominal wall into the peritoneal cavity. The peritoneal cavity was insufflated to 15 mm of pressure again and three 5 mm ports were placed laterally on the abdominal wall to allow for stapling the mesh into position. A 12 mm trocar was placed at the fascial defect at the umbilicus. The fascial defect was about 3 cm in size, but given her morbid obesity, this was under tension. Even despite pulling the edges of the fascia, as well as, decreasing the abdominal pressure, this did not come together easily and I felt that a primary closure plus mesh would be very prone to fascial dehiscence. Thus, the Ventralight mesh was placed through the 12 mm port and stapled in place with the Securestrap. After good placement was appreciated circumferentially and on the edges of the hernia sac, the abdomen was desufflated under direct visualization, taking the mesh out through the left upper quadrant port site. All sites were closed with #4-0 Vicryl. Steri-Strips and a dry sterile dressing was applied. The patient was awakened and brought to the recovery room awake, alert and hemodynamically stable. Sponge and needle counts were correct times two.
[2016-06-26] MEDS ORDERED: ALBUTEROL SULFATE 2.5 MG/0.5 ML INH NEB SOLN As Ordered ONE (09:56)
[2016-06-26] MEDS ORDERED: NORCO, ANEXSIA 5/325MG TABLET (HYDROcodone/ACETAMINOPHEN) PO PRN ×2 (10:15→10:45)
[2016-06-26] MEDS ORDERED: ONDANSETRON 4MG/2ML VIAL (J2405) IV PRN ×3 (10:15→10:45)
[2016-06-26] MEDS ORDERED: MORPHINE 2 MG/ML 1ML SYRINGE IV PRN ×2 (10:15→10:45)
[2016-06-26] MEDS ORDERED: fentaNYL 100 MCG/2 ML INJECTION (J3010) IV PRN (10:15)
[2016-06-26] MEDS ORDERED: PROMETHAZINE INJ 25 MG/ML VIAL (J2550) IV PRN (10:45)
[2016-06-26] MEDS ORDERED: MORPHINE 4 MG/ML 1ML SYRINGE IV PRN (10:45)
[2016-06-26] MEDS ORDERED: METOCLOPRAMIDE INJ 10MG/2ML VIAL (J2765) IV PRN (10:45)
[2016-06-26] MEDS ORDERED: zolPIDEM TARTRATE 10MG TAB PO PRN (10:45)
[2016-06-26] MEDS ORDERED: IPRATROPIUM 0.5MG/ALBUTEROL 2.5MG INH SOL UD 3ML (DUONEB)(J7620) NEB PRN (10:45)
[2016-06-26] MEDS ORDERED: ALBUTEROL SULFATE 2.5 MG/0.5 ML INH NEB SOLN INH ONE (11:00)
[2016-06-26] MEDS: PANTOPRAZOLE 40MG TAB (PROTONIX) PO SCH (13:27)
[2016-06-26] MEDS: NORCO, ANEXSIA 5/325MG TABLET (HYDROcodone/ACETAMINOPHEN) PO PRN ×2 (13:28→20:09)
[2016-06-26] MEDS: LR 1,000 ML IV SCH ×3 (13:29→23:35)
[2016-06-26] MEDS: IPRATROPIUM 0.5MG/ALBUTEROL 2.5MG INH SOL UD 3ML (DUONEB)(J7620) NEB SCH ×2 (14:00→21:07)
[2016-06-26] MEDS: DOCUSATE SODIUM 100 MG CAP PO SCH (20:08)
[2016-06-26] MEDS: SENOKOT S TAB PO SCH (20:09)
[2016-06-26] MEDS ORDERED: OLANZapine 10 MG TAB PO SCH (21:00)
[2016-06-26] MEDS ORDERED: CitaloPRAM (CeleXA) 10 MG TABLET PO SCH (21:00)
[2016-06-27 01:00] VITALS: BP 93/54
[2016-06-27 01:17] VITALS: O2SAT 95
[2016-06-27] MEDS: IPRATROPIUM 0.5MG/ALBUTEROL 2.5MG INH SOL UD 3ML (DUONEB)(J7620) NEB SCH ×2 (01:17→08:05)
[2016-06-27 06:00] VITALS: BP 121/58
[2016-06-27] MEDS: LR 1,000 ML IV SCH (06:15)
[2016-06-27] MEDS: NORCO, ANEXSIA 5/325MG TABLET (HYDROcodone/ACETAMINOPHEN) PO PRN (06:42)
--- NOTE | 2016-06-27 07:03 | ECGEPIP ---
Stationary ECG Study [facility] Test Date: 2016-06-26 Pat Name: ABA MURILLO Department: Room: - Gender: F Visiting Professor: : 1955 Requested By: You Santos Order Number: [id number] Reading MD: Petey Choudhury Measurements Intervals [place] Rate: 79 P: 61 ND: 156 QRS: 62 QRSD: 94 T: 49 QT: 368 QTc: 424 Interpretive Statements Normal sinus rhythm Some delay in anterior R wave progression Nonspecific ST-T wave abnormalities Comparison tracing not on file Electronically Signed On 06-27-2016 7:02:57 EDT by Petey Choudhury
[2016-06-27] MEDS ORDERED: HYDR-3713 PO (09:42)
[2016-06-27] MEDS: DOCUSATE SODIUM 100 MG CAP PO SCH (10:06)
[2016-06-27] MEDS: PANTOPRAZOLE 40MG TAB (PROTONIX) PO SCH (10:06)
[2016-06-27] MEDS: SENOKOT S TAB PO SCH (10:06)
== END 2016-06-27 10:18 | disposition home or self-care (01) ==
LOC: M SDC 05:57 → M MS5PR 12:30 → M SDC 06-27 10:18
PROVIDERS: ATTEND Surgery
DX: K43.2 Incisional hernia without obstruction or gangrene (principal); F32.9 Major depressive disorder, single episode, unspecified; F41.9 Anxiety disorder, unspecified; F17.210 Nicotine dependence, cigarettes, uncomplicated; Z88.0 Allergy status to penicillin; Z79.82 Long term (current) use of aspirin; Z79.899 Other long term (current) drug therapy
CPT/HCPCS: 49654; 93005; 94640; C1781; J0690; J1100; J1885; J2250; J2405; J2710; J3010

== ENCOUNTER → 2016-09-11 | Outpatient (CLI) | payer MEDICARE, MEDICAID ==
[~2016-09-11] MED LIST changes: +HYDR-3713 PO
--- NOTE | 2016-09-11 12:40 | REPMRS ---
Patient History The patient states she had a clinical breast exam in 07/2016. Patient is postmenopausal. No known family history of cancer. Digital Woman Screen Mammo: September 11, 2016 - Exam #: [id number] Bilateral CC and MLO view(s) were taken. Technologist: Jess Sadler, Technologist Prior study comparison: July 20, 2015, digital woman screen mammo performed at [facility]. June 11, 2014, digital woman screen mammo performed at [facility]. FINDINGS: There are scattered fibroglandular densities. There has been no change in the appearance of the mammogram from the prior studies. There is a mild amount of residual fibroglandular tissue which is fairly symmetric. There is no interval development of dominant mass, architectural distortion, or clustered microcalcification suggestive of malignancy. ASSESSMENT: BI-RADS/ACR category 1 mammogram. Negative. Recommendation Routine screening mammogram in 1 year (for women over age 40). This mammogram was interpreted with the aid of an FDA-approved computer-aided dectection system. Electronically Signed By: Brian Grigsby MD 09/11/16 1029
--- NOTE | 2016-09-13 09:16 | DEXA ---
AP SPINE L1 - L4 1.272 0.6 2.1 LT FEMUR TOTAL 0.977 -0.2 0.8 RT FEMUR TOTAL 0.999 -0.1 1.0 TOTAL BODY TOTAL OTHER DUAL FEMUR FRAX* ASSESSMENT Risk factors: History of adult fractures, current tobacco user. 10 year probability of fracture Major osteoporotic fracture 12.6 % Hip fracture 1.8 % COMMENTS: There is low bone density of the left hip based on femoral neck T score -1.4 left. There is low bone density of the right hip based on femoral neck T score -1.2 right. The increased density of the spine does represent a significant change since 03/2014. The decreased density of the left hip does not represent a significant change since 05/13/2013. The increased density of the right hip does represent a significant change since 05/13/2013. The density of the spine has increased 8.7% since the initial exam on 2007. The spine density has increased 2.8% since the most recent exam on 05/13/2013. The density of the left hip has increased 8.2% since the initial exam on 2007. The density of the left hip has decreased 0.6% since the most recent exam on 03/2014. The density of the right hip has increased 9.7% since the initial exam on 2007. The density of the right hip has increased 1.8% since the most recent exam on . FOLLOW-UP: Recommendation for the next bone density exam: 2 years. BIGG
== END ==
LOC: M WHC 10:49
PROVIDERS: ATTEND Nurse Practitioner Family
DX: Z12.31 Encounter for screening mammogram for malignant neoplasm of breast (principal); Z78.0 Asymptomatic menopausal state; Z13.820 Encounter for screening for osteoporosis; M85.80 Other specified disorders of bone density and structure, unspecified site
CPT/HCPCS: 77080; G0202

== ENCOUNTER → 2016-09-20 | Outpatient (REF) | payer MEDICARE, MEDICAID ==
[2016-09-20 13:49] LABS: ALBUMIN 3.9 GM/DL (3.2-5.2); ALBUMIN/GLOBULIN RATIO 0.93 (1.00-1.93); ALKALINE PHOSPHATASE 115 U/L (45-117); ALT/SGPT 22 U/L (12-78); ANION GAP 7 MEQ/L (8-16); AST/SGOT 15 U/L (15-37); BILIRUBIN,TOTAL 0.3 MG/DL (0.2-1.0); BLOOD UREA NITROGEN 17 MG/DL (7-18); CALCIUM LEVEL 9.4 MG/DL (8.8-10.2); CARBON DIOXIDE LEVEL 29 MEQ/L (21-32); CHLORIDE LEVEL 105 MEQ/L (98-107); CHOLESTEROL LEVEL 196 MG/DL (<200); CREATININE FOR GFR 0.98 MG/DL (0.55-1.02); GLOMERULAR FILTRATION RATE > 60.0 (>45); GLUCOSE, FASTING 103 MG/DL (80-110); POTASSIUM SERUM 4.3 MEQ/L (3.5-5.1); SODIUM LEVEL 141 MEQ/L (136-145); TOTAL PROTEIN 8.1 GM/DL (6.4-8.2); TRIGLYCERIDES LEVEL 148 MG/DL (<150)
== END ==
LOC: M SFHCPLAZ 09:24
PROVIDERS: ATTEND Nurse Practitioner Family
DX: Z13.220 Encounter for screening for lipoid disorders (principal); Z79.899 Other long term (current) drug therapy

== ENCOUNTER → 2017-07-03 | Outpatient (REF) | payer MEDICARE, MEDICAID | LOC: M SFHCPLAZ 16:47 | DX: R30.0 Dysuria (principal) | CPT/HCPCS: 87186 ==

== ENCOUNTER → 2017-09-05 | Outpatient (CLI) | payer MEDICARE, MEDICAID | LOC: M RAD 10:33 | DX: Z12.2 Encounter for screening for malignant neoplasm of respiratory organs (principal); F17.210 Nicotine dependence, cigarettes, uncomplicated | CPT/HCPCS: G0297 ==

== ENCOUNTER → 2017-09-12 | Outpatient (CLI) | payer MEDICARE, MEDICAID | LOC: M WHC 10:48 | DX: Z12.31 Encounter for screening mammogram for malignant neoplasm of breast (principal) | CPT/HCPCS: 77067 ==

== ENCOUNTER 2018-07-14 11:59 | Emergency (ER) | payer MEDICARE, MEDICAID ==
[~2018-07-14] VITALS: Ht 162.6 cm; Wt 104.5 kg
[~2018-07-14 11:59] MED LIST changes: -CALC-210 PO; +CALC-239 PO; +CIPR-249 PO; -CIPR500T89 PO; -CITA20TA4 PO; +CITA20TA6 PO; +HYDR-3715 PO; -NORCOTAB PO
[2018-07-14 12:46] LABS: BASO % 0.4 % (0.0-1.0); EOS # 0.2 10^3/uL (0.0-0.50); HEMATOCRIT 42.9 % (36.0-47.0); HEMOGLOBIN 14.6 g/dl (12.0-15.5); LYMPH % 38.2 % (24.0-44.0); MEAN CORPUSCULAR HEMOGLOBIN 31.4 pg (27.0-33.0); MEAN CORPUSCULAR VOLUME 92.3 fl (80.0-96.0); MONO # 0.8 10^3/uL (0.0-0.8); MONO % 10.6 % (0.0-5.0); NEUTROPHILS # 3.9 10^3/uL (1.8-7.7); NEUTROPHILS % 48.5 % (36.0-66.0); PLATELET COUNT, AUTOMATED 218 10^3/uL (150-450); RED BLOOD COUNT 4.65 10^6/uL (4.00-5.40); WHITE BLOOD COUNT 7.9 10^3/uL (4.0-10.0)
[2018-07-14 13:10] LABS: ALBUMIN 3.7 GM/DL (3.2-5.2); ALT/SGPT 27 U/L (12-78); BILIRUBIN,DIRECT < 0.1 MG/DL (0.0-0.2); BILIRUBIN,TOTAL 0.3 MG/DL (0.2-1.0); BLOOD UREA NITROGEN 15 MG/DL (7-18); CALCIUM LEVEL 9.1 MG/DL (8.8-10.2); CARBON DIOXIDE LEVEL 28 MEQ/L (21-32); CHLORIDE LEVEL 106 MEQ/L (98-107); CREATININE FOR GFR 1.01 MG/DL (0.55-1.30); GLOMERULAR FILTRATION RATE 58.6 (>45); GLUCOSE, FASTING 117 MG/DL (70-100); LIPASE 178 U/L (73-393); POTASSIUM SERUM 3.8 MEQ/L (3.5-5.1); SODIUM LEVEL 141 MEQ/L (136-145); TOTAL PROTEIN 8.2 GM/DL (6.4-8.2)
--- NOTE | 2018-07-14 14:14 | REP ---
CT LUMBAR SPINE WITHOUT CONTRAST: HISTORY: Back discomfort. There is no disc bulge or herniation at the L1-2 level. The L1 nerves exit the neural foramina without compression. A diffuse disc bulge is present at the L2-3 level. There is minimal compression of the thecal sac. There is hypertrophy of the posterior articulating facets. The L2 nerves exit the neural foramina without compression. A diffuse disc bulge is present at the L3-4 level. There is hypertrophy of the ligamenta flava and posterior articulating facets. These findings produce mild central canal stenosis. The L3 nerves exit the neural foramina without compression. A diffuse disc bulge is present at the L4-5 level. There is hypertrophy of the ligamenta flava and posterior articulating _ facets __. These findings produce moderate central canal stenosis. There is compression of the L4 nerves in the neural foramina. A diffuse disc bulge is present at the L5-S1 level. There is minimal compression of the thecal sac. There is hypertrophy of the posterior articulating facets. There is compression of the L5 nerves in the neural foramina. The L3-4 through L5-S1 intervertebral discs are decreased in height. Vacuum phenomenon is present at the L5-S1 level. These findings are consistent with disc degeneration. There is no subluxation. IMPRESSION: 1. Diffuse disc bulges at the L2-3 and L5-S1 levels with minimal thecal sac compression. There is compression of the L5 nerves in the neural foramina. 2. Mild central canal stenosis at the L3-4 level secondary to disc bulge, ligamentous and facet hypertrophy. 3. Moderate central canal stenosis at the L4-5 level secondary to disc bulge, ligamentous and facet hypertrophy. There is compression of the L4 nerves in the neural foramina. Electronically Signed by Grzegorz Zazueta MD 07/14/2018 02:17 P
[2018-07-14 14:20] VITALS: BP 118/62
--- NOTE | 2018-07-15 05:45 | ED PDOC ---
Post-Departure Follow-Up jory cruz faxed formal report of ct ls spine for fu Renata De Paz MD Jul 15, 2018 05:45
== END 2018-07-14 14:22 | disposition home or self-care (01) ==
LOC: M ED 11:59
DX: R15.9 Full incontinence of feces (principal); M48.061 Spinal stenosis, lumbar region without neurogenic claudication; F20.0 Paranoid schizophrenia; F33.9 Major depressive disorder, recurrent, unspecified; F41.9 Anxiety disorder, unspecified; E66.9 Obesity, unspecified; Z79.899 Other long term (current) drug therapy; Z79.82 Long term (current) use of aspirin; Z88.0 Allergy status to penicillin

== ENCOUNTER → 2018-07-18 | Outpatient (REF) | payer MEDICARE, MEDICAID ==
[2018-07-18 18:41] LABS: APPEARANCE, URINE CLEAR (CLEAR); BACTERIA, URINE AUTO NEGATIVE (NEGATIVE); BILIRUBIN, URINE AUTO NEGATIVE (NEGATIVE); BLOOD, URINE BLOOD 2+ (NEGATIVE); COLOR, URINE YELLOW (YELLOW); GLUCOSE, URINE (UA) AUTO NEGATIVE (NEGATIVE); KETONE, URINE AUTO NEGATIVE (NEGATIVE); LEUKOCYTE ESTERASE, URINE AUTO NEGATIVE (NEGATIVE); NITRITE, URINE AUTO NEGATIVE (NEGATIVE); PROTEIN, URINE AUTO NEGATIVE (NEGATIVE); RBC, URINE AUTO 7 /HPF (0-3); SPECIFIC GRAVITY URINE AUTO 1.008 (1.002-1.035); SQUAMOUS EPITHELIAL CELL UR AU 0 /HPF (0-6); UROBILINOGEN, URINE AUTO 0.2 mg/dL (0.0-2.0); WBC, URINE AUTO 0 /HPF (0-3)
== END ==
LOC: M SFHCPLAZ 16:51
PROVIDERS: ATTEND Nurse Practitioner Family
DX: N39.3 Stress incontinence (female) (male) (principal)
CPT/HCPCS: 81001; 81002; 87086; G0463

== ENCOUNTER → 2018-08-05 | Outpatient (REF) | payer MEDICARE, MEDICAID ==
[2018-08-05 13:13] LABS: BASO % 0.5 % (0.0-1.0); EOS # 0.2 10^3/uL (0.0-0.50); EOS % 1.8 % (0.0-3.0); HEMATOCRIT 43.6 % (36.0-47.0); HEMOGLOBIN 14.2 g/dl (12.0-15.5); LYMPH # 3.6 10^3/uL (1.5-4.5); LYMPH % 42.5 % (24.0-44.0); MEAN CORPUSCULAR HEMOGLOBIN 30.4 pg (27.0-33.0); MEAN CORPUSCULAR HGB CONC 32.6 g/dl (32.0-36.5); MEAN CORPUSCULAR VOLUME 93.4 fl (80.0-96.0); MONO # 0.7 10^3/uL (0.0-0.8); MONO % 8.5 % (0.0-5.0); NEUTROPHILS % 46.3 % (36.0-66.0); PLATELET COUNT, AUTOMATED 226 10^3/uL (150-450); RED BLOOD COUNT 4.67 10^6/uL (4.00-5.40); WHITE BLOOD COUNT 8.5 10^3/uL (4.0-10.0)
[2018-08-05 13:19] LABS: ALBUMIN 3.6 GM/DL (3.2-5.2); ALT/SGPT 22 U/L (12-78); BILIRUBIN,TOTAL 0.4 MG/DL (0.2-1.0); BLOOD UREA NITROGEN 14 MG/DL (7-18); CALCIUM LEVEL 8.8 MG/DL (8.8-10.2); CARBON DIOXIDE LEVEL 31 MEQ/L (21-32); CHLORIDE LEVEL 106 MEQ/L (98-107); CHOLESTEROL LEVEL 186 MG/DL (<200); CHOLESTEROL RISK RATIO 4.133 (<5); CREATININE FOR GFR 0.95 MG/DL (0.55-1.30); GLOMERULAR FILTRATION RATE > 60.0 (>45); GLUCOSE, FASTING 106 MG/DL (70-100); HDL CHOLESTEROL 45 MG/DL (>40); LDL CHOLESTEROL 110 MG/DL (<100); NON-HDL-C 141 MG/DL; POTASSIUM SERUM 4.2 MEQ/L (3.5-5.1); SODIUM LEVEL 141 MEQ/L (136-145); TOTAL PROTEIN 8.2 GM/DL (6.4-8.2); TRIGLYCERIDES LEVEL 154 MG/DL (<150)
[2018-08-05 14:34] LABS: APPEARANCE, URINE CLEAR (CLEAR); BACTERIA, URINE AUTO NEGATIVE (NEGATIVE); BILIRUBIN, URINE AUTO NEGATIVE (NEGATIVE); BLOOD, URINE BLOOD 2+ (NEGATIVE); COLOR, URINE YELLOW (YELLOW); GLUCOSE, URINE (UA) AUTO NEGATIVE (NEGATIVE); KETONE, URINE AUTO NEGATIVE (NEGATIVE); LEUKOCYTE ESTERASE, URINE AUTO NEGATIVE (NEGATIVE); NITRITE, URINE AUTO NEGATIVE (NEGATIVE); PROTEIN, URINE AUTO NEGATIVE (NEGATIVE); RBC, URINE AUTO 7 /HPF (0-3); SPECIFIC GRAVITY URINE AUTO 1.011 (1.002-1.035); SQUAMOUS EPITHELIAL CELL UR AU 1 /HPF (0-6); UROBILINOGEN, URINE AUTO 0.2 mg/dL (0.0-2.0); WBC, URINE AUTO 1 /HPF (0-3)
== END ==
LOC: M SFHCPLAZ 09:33
PROVIDERS: ATTEND Nurse Practitioner Family
DX: R31.29 Other microscopic hematuria (principal); Z13.220 Encounter for screening for lipoid disorders; Z79.899 Other long term (current) drug therapy

== ENCOUNTER → 2018-08-21 | Outpatient (CLI) | payer MEDICARE, MEDICAID ==
--- NOTE | 2018-08-21 13:42 | REP ---
MR LUMBAR SPINE WITHOUT CONTRAST: HISTORY: Spinal stenosis. COMPARISON: CT 07/14/2018 Decreased signal intensity on T2-weighted images is present in the lumbar intervertebral discs. The L3-4 through L5-S1 intervertebral discs are decreased in height. These findings are consistent with disc degeneration. There is no disc bulge or herniation at the L1-2 level. The L1 nerves exit the neural foramina without compression. A diffuse disc bulge is present at the L2-3 level. There is minimal compression of the thecal sac. There is hypertrophy of the ligamenta flava and posterior articulating facets. The L2 nerves exit the neural foramina without compression. A diffuse disc bulge is present at the L3-4 level. There is hypertrophy of the ligamenta flava and posterior articulating facets. These findings produce mild central canal stenosis. The L3 nerves exit the neural foramina without compression. A diffuse disc bulge is present at the L4-5 level. There is hypertrophy of the ligamenta flava and posterior articulating facets. These findings produce moderate central canal stenosis. The L4 nerves exit the neural foramina without compression. A diffuse disc bulge is present at the L5-S1 level. There is minimal compression of the thecal sac. There is hypertrophy of the ligamenta flava and posterior articulating facets. A small right intraforaminal disc protrusion is present. The L5 nerves exit the neural foramina without compression. The conus medullaris is normal in appearance terminating at the level of the T12-L1 intervertebral disc. Normal signal intensity is present in the lumbar vertebral bodies. A 2.1 cm cyst is present in the left kidney. IMPRESSION: 1. Diffuse disc bulges at the L2-3 and L5-S1 levels with minimal thecal sac compression. 2. Mild central canal stenosis at the L3-4 level secondary to disc bulge, ligamentous and facet hypertrophy. 3. Moderate central canal stenosis at the L4-5 level secondary to disc bulge, ligamentous and facet hypertrophy. There is no significant change compared to the previous study. Electronically Signed by Grzegorz Zazueta MD 08/21/2018 01:53 P
== END ==
LOC: M RAD 11:07
PROVIDERS: ATTEND Physician Assistant
DX: M48.061 Spinal stenosis, lumbar region without neurogenic claudication (principal); M51.26 Other intervertebral disc displacement, lumbar region

== ENCOUNTER → 2018-09-12 | Outpatient (CLI) | payer MEDICARE, MEDICAID ==
--- NOTE | 2018-09-12 14:49 | REPMRS ---
Patient History The patient states she had a clinical breast exam in 07/2018. Patient is postmenopausal. No known family history of cancer. No Hormone Replacement Therapy Digital Woman Screen Mammo: September 12, 2018 - Exam #: [id number] Bilateral CC and MLO view(s) were taken. Technologist: Jess Sadler, Technologist Prior study comparison: September 12, 2017, bilateral digital woman screen mammo performed at [facility]. September 11, 2016, digital woman screen mammo performed at [facility]. July 20, 2015, digital woman screen mammo performed at [facility]. FINDINGS: There are scattered fibroglandular densities. There has been no change in the appearance of the mammogram from the prior studies. There is a mild amount of scattered fibroglandular density which is fairly symmetric. There is no interval development of dominant mass, architectural distortion, or clustered microcalcification suggestive of malignancy. 3-D tomosynthesis shows no additional findings. Assessment: BI-RADS/ACR category 1 mammogram. Negative Mammogram. Recommendation Routine screening mammogram of both breasts in 1 year (for women over age 40). This patient's Lifetime Breast Cancer RIsk is estimated at 5.0 %. This mammogram was interpreted with the aid of an FDA-approved computer-aided dectection system. Electronically Signed By: Chris Santos MD 09/12/18 [id number]
== END ==
LOC: M WHC 13:32
PROVIDERS: ATTEND Nurse Practitioner Family
DX: Z12.31 Encounter for screening mammogram for malignant neoplasm of breast (principal)

== ENCOUNTER → 2018-09-30 | Outpatient (REF) | payer MEDICARE, MEDICAID | LOC: M SFHCPLAZ 15:30 | PROVIDERS: ATTEND Nurse Practitioner Family | DX: R23.4 Changes in skin texture (principal) | CPT/HCPCS: 11102; 88305; G0463 ==

== ENCOUNTER → 2018-10-07 | Outpatient (CLI) | payer MEDICARE, MEDICAID ==
--- NOTE | 2018-10-07 18:21 | REP ---
Low-dose lung cancer screening, noncontrast CT study of the chest: History: Nicotine dependence. Comparison screening chest CT September 05, 2017. Comparison study from June 05, 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 Previously noted left upper lobe bullous is again seen unchanged. No infiltrate is seen. There is minimal linear fibrosis in the right lower lobe. No significant pulmonary nodule is appreciated. No infiltrate is seen. No pleural effusion is noted. Study is otherwise unremarkable. Impression: Lung-RADS category II benign findings. Repeat screening exam suggested in 12 months. Electronically Signed by Julián Santos MD 10/07/2018 07:29 P
== END ==
LOC: M RAD 10:39
PROVIDERS: ATTEND Nurse Practitioner Family
DX: Z12.2 Encounter for screening for malignant neoplasm of respiratory organs (principal); F17.210 Nicotine dependence, cigarettes, uncomplicated

== ENCOUNTER → 2019-01-05 | Outpatient (REF) | payer MEDICARE, MEDICAID ==
[2019-01-05 10:17] LABS: ALBUMIN 3.8 GM/DL (3.2-5.2); BILIRUBIN,TOTAL 0.4 MG/DL (0.2-1.0); CALCIUM LEVEL 9.5 MG/DL (8.8-10.2); CHOLESTEROL RISK RATIO 2.76 (<5); CREATININE FOR GFR 1.06 MG/DL (0.55-1.30); GLOMERULAR FILTRATION RATE 55.4 (>45); POTASSIUM SERUM 4.1 MEQ/L (3.5-5.1); TOTAL PROTEIN 8.2 GM/DL (6.4-8.2)
== END ==
LOC: M SFHCPLAZ 08:13
PROVIDERS: ATTEND Nurse Practitioner Family
DX: E78.2 Mixed hyperlipidemia (principal)

== ENCOUNTER → 2019-04-15 | Outpatient (REF) | payer MEDICARE, MEDICAID ==
[2019-04-15 15:40] LABS: AMORPHOUS SEDIMENT SMALL (NEGATIVE); APPEARANCE, URINE CLEAR (CLEAR); BACTERIA, URINE AUTO 1+ (NEGATIVE); BILIRUBIN, URINE AUTO NEGATIVE (NEGATIVE); BLOOD, URINE BLOOD 2+ (NEGATIVE); COLOR, URINE YELLOW (YELLOW); GLUCOSE, URINE (UA) AUTO NEGATIVE (NEGATIVE); KETONE, URINE AUTO NEGATIVE (NEGATIVE); LEUKOCYTE ESTERASE, URINE AUTO NEGATIVE (NEGATIVE); NITRITE, URINE AUTO NEGATIVE (NEGATIVE); PROTEIN, URINE AUTO NEGATIVE (NEGATIVE); RBC, URINE AUTO 26 /HPF (0-3); SPECIFIC GRAVITY URINE AUTO 1.011 (1.002-1.035); SQUAMOUS EPITHELIAL CELL UR AU 1 /HPF (0-6); UROBILINOGEN, URINE AUTO 0.2 mg/dL (0.0-2.0); WBC, URINE AUTO 0 /HPF (0-3)
== END ==
LOC: M SFHCPLAZ 14:04
PROVIDERS: ATTEND Nurse Practitioner Family
DX: R39.89 Other symptoms and signs involving the genitourinary system (principal); R31.29 Other microscopic hematuria
CPT/HCPCS: 81001; 81002; 87086; 88108; G0463

== ENCOUNTER → 2019-04-25 | Outpatient (CLI) | payer MEDICARE, MEDICAID ==
--- NOTE | 2019-04-25 14:57 | REP ---
PA CHEST WITH LEFT RIBS: 04/25/2019. Comparison: Chest x-ray 05/23/2016. Clinical history: Left-sided chest wall pain for a week. Findings: Lungs are well inflated and without infiltrate, effusion, atelectasis or mass. The heart is not enlarged. No vascular redistribution or pulmonary edema. The aorta is intact. Airway is midline. Pulmonary arteries are symmetric. Visualized bones show AC joints with spurring inferiorly and some sclerosis bilaterally in a symmetric fashion. Minor glenohumeral joint degenerative changes. There are marginal osteophytes in the spine. Left ribs: Five views show the clavicle, scapula and humerus without fracture, focal lesion. Visualized ribs show no displaced fracture, focal rib lesion, pleural thickening, pleural effusion or pneumothorax. Posterior articulation intact. Some marginal osteophytes lower thoracic spine are present. Impression: 1. Negative PA chest and left rib series for any acute cardiopulmonary change, focal rib lesion or displaced fracture. No pneumothorax or effusion. Electronically Signed by Aj Green MD 04/25/2019 08:03 P
== END ==
LOC: M RAD 11:55
PROVIDERS: ATTEND Nurse Practitioner Family
DX: R07.89 Other chest pain (principal)

== ENCOUNTER → 2019-04-27 | Outpatient (REF) | payer MEDICARE, MEDICAID ==
[2019-04-27 14:13] LABS: APPEARANCE, URINE CLEAR (CLEAR); BACTERIA, URINE AUTO NEGATIVE (NEGATIVE); BILIRUBIN, URINE AUTO NEGATIVE (NEGATIVE); BLOOD, URINE BLOOD 2+ (NEGATIVE); COLOR, URINE YELLOW (YELLOW); GLUCOSE, URINE (UA) AUTO NEGATIVE (NEGATIVE); KETONE, URINE AUTO NEGATIVE (NEGATIVE); LEUKOCYTE ESTERASE, URINE AUTO NEGATIVE (NEGATIVE); NITRITE, URINE AUTO NEGATIVE (NEGATIVE); PROTEIN, URINE AUTO NEGATIVE (NEGATIVE); RBC, URINE AUTO 9 /HPF (0-3); SPECIFIC GRAVITY URINE AUTO 1.009 (1.002-1.035); SQUAMOUS EPITHELIAL CELL UR AU 0 /HPF (0-6); UROBILINOGEN, URINE AUTO 0.2 mg/dL (0.0-2.0); WBC, URINE AUTO 1 /HPF (0-3)
== END ==
LOC: M SFHCPLAZ 13:57
PROVIDERS: ATTEND Nurse Practitioner Family
DX: R31.29 Other microscopic hematuria (principal)

== ENCOUNTER → 2019-05-14 | Outpatient (CLI) | payer MEDICARE, MEDICAID ==
[2019-05-14 13:18] LABS: BLOOD UREA NITROGEN 13 MG/DL (7-18); CALCIUM LEVEL 9.4 MG/DL (8.8-10.2); CARBON DIOXIDE LEVEL 30 MEQ/L (21-32); CHLORIDE LEVEL 103 MEQ/L (98-107); CREATININE FOR GFR 0.98 MG/DL (0.55-1.30); GLOMERULAR FILTRATION RATE > 60.0 (>45); GLUCOSE, FASTING 92 MG/DL (70-100); POTASSIUM SERUM 4.1 MEQ/L (3.5-5.1); SODIUM LEVEL 141 MEQ/L (136-145)
== END ==
LOC: M LAB 12:06
PROVIDERS: ATTEND Nurse Practitioner Women's Health
DX: R31.9 Hematuria, unspecified (principal)

== ENCOUNTER → 2019-05-21 | Outpatient (CLI) | payer MEDICARE, MEDICAID ==
[~2019-05-21] MED LIST changes: +ISOVUE-370 76% 100ML VIAL (Q9967) As Ordered ONE
--- NOTE | 2019-05-21 15:52 | REP ---
Clinical: Microscopic hematuria. Technique: Axial precontrast, conscious enhanced, and delayed images of the abdomen and pelvis using 100 ml Isovue 370 intravenous contrast material with coronal and sagittal re-formations. Volume rendered 3-D CT urogram obtained. Findings: Kidneys include small bilateral cysts measuring 1.1 cm in the right kidney and up to 2.4 cm in left kidney. No hydroureteronephrosis, nephroureterolithiasis, perinephric stranding or renal mass lesion identified. Kidneys demonstrate symmetric enhancement and excretion to the collecting system. Bladder is unremarkable. Liver, spleen, pancreas, bilateral adrenal glands are normal. Evidence of prior cholecystectomy. The enteric system is without obstruction or acute inflammatory process. Sigmoid diverticulosis noted without acute diverticulitis. Pelvis demonstrates normal bladder and age-appropriate uterus/adnexa. No ascites. No free air. No adenopathy. Abdominal aorta without aneurysm or dissection. Musculoskeletal structures demonstrate age-related degenerative changes. Lung bases are clear. Impression: 1. Simple appearing bilateral renal cysts. No further urinary tract pathology appreciated. 2. Sigmoid diverticulosis without acute diverticulitis. Electronically Signed by Willis Og MD 05/21/2019 03:43 P
== END ==
LOC: M RAD 14:34
PROVIDERS: ATTEND Nurse Practitioner Women's Health
DX: N28.1 Cyst of kidney, acquired (principal); K57.30 Diverticulosis of large intestine without perforation or abscess without bleeding; R31.29 Other microscopic hematuria
CPT/HCPCS: 74178; Q9967

== ENCOUNTER → 2019-11-25 | Outpatient (CLI) | payer MEDICARE, MEDICAID ==
[~2019-11-25] MED LIST changes: -ASPI81TA85 PO; +ASPI81TA86 PO; +ATOR1TAB19; -ISOVUE-370 76% 100ML VIAL (Q9967) As Ordered ONE; +PRED20TA PO
--- NOTE | 2019-11-26 07:05 | REPMRS ---
Patient History The patient states she has not had a clinical breast exam in over a year. Patient is postmenopausal. Family history of breast cancer at age 44 in daughter. No Hormone Replacement Therapy Digital Woman Screen Mammo: November 25, 2019 - Exam #: [id number] Bilateral CC and MLO view(s) were taken. Technologist: Helga Pérez Technologist Prior study comparison: September 12, 2018, bilateral digital woman screen mammo performed at [facility]. September 12, 2017, bilateral digital woman screen mammo performed at [facility]. September 11, 2016, digital woman screen mammo performed at [facility]. FINDINGS: The breast tissue is almost entirely fat. The Volpara volumetric breast density category is: A. There has been no change in the appearance of the mammogram from the prior studies. There is no interval development of dominant mass, architectural distortion, or grouped microcalcification typical of malignancy. 3-D tomosynthesis shows no additional findings. Assessment: BI-RADS/ACR category 1 mammogram. Negative Mammogram. Recommendation Routine screening mammogram of both breasts in 1 year (for women over age 40). This patient's Lifetime Breast Cancer RIsk is estimated at 9.1 %. This mammogram was interpreted with the aid of an FDA-approved computer-aided dectection system. Electronically Signed By: Chris Santso MD 11/26/19 [id number]
== END ==
LOC: M WHC 11:16
PROVIDERS: ATTEND Nurse Practitioner Family
DX: Z12.31 Encounter for screening mammogram for malignant neoplasm of breast (principal)

== ENCOUNTER → 2019-11-27 | Outpatient (CLI) | payer MEDICARE, MEDICAID ==
--- NOTE | 2019-12-28 10:11 | REP ---
HISTORY: Nicotine dependence. COMPARISON: Made with prior chest CTs, the most recent of which is from 10/07/2018 and the most remote is dated 06/05/2016. FINDINGS: The previously noted left upper lobe bullous is again seen against the mediastinum. There is no significant pulmonary nodule or mass lesion. Minimal linear fibrotic changes are seen in the right base. Study is otherwise unremarkable. IMPRESSION: Stable lung-RADS Category 2 findings. Repeat screening exam suggested in one year. MTDD
== END ==
LOC: M RAD 09:26
PROVIDERS: ATTEND Nurse Practitioner Family
DX: Z12.2 Encounter for screening for malignant neoplasm of respiratory organs (principal); F17.210 Nicotine dependence, cigarettes, uncomplicated

== ENCOUNTER 2019-12-07 20:43 | Emergency (ER) | payer MEDICARE, MEDICAID ==
[~2019-12-07] VITALS: Ht 162.6 cm; Wt 109.9 kg
[~2019-12-07 20:43] MED LIST changes: -ATOR1TAB19; -PRED20TA PO
[2019-12-07] MEDS ORDERED: ATOR1TAB19 (20:54)
[2019-12-07 21:07] VITALS: O2SAT 89
[2019-12-07] MEDS ORDERED: COMBIVENT RESPIMAT 100-20MCG INHALER 4GM INH ONE (21:30)
[2019-12-07] MEDS ORDERED: methylPREDNISolone 125MG 2ML VIAL IV ONE (21:30)
[2019-12-07 22:14] LABS: BASO # 0.1 10^3/uL (0.0-0.2); BASO % 0.5 % (0.0-1.0); EOS # 0.5 10^3/uL (0.0-0.5); EOS % 4.7 % (0.0-3.0); HEMATOCRIT 42.7 % (36.0-47.0); LYMPH # 4.8 10^3/uL (1.5-5.0); LYMPH % 45.1 % (24.0-44.0); MEAN CORPUSCULAR HEMOGLOBIN 30.8 pg (27.0-33.0); MEAN CORPUSCULAR HGB CONC 32.8 g/dl (32.0-36.5); MEAN CORPUSCULAR VOLUME 93.8 fl (80.0-96.0); MONO # 0.9 10^3/uL (0.0-0.8); MONO % 8.2 % (0.0-5.0); NEUTROPHILS # 4.4 10^3/uL (1.5-8.5); PLATELET COUNT, AUTOMATED 242 10^3/uL (150-450); RED BLOOD COUNT 4.55 10^6/uL (4.00-5.40); WHITE BLOOD COUNT 10.7 10^3/uL (4.0-10.0)
[2019-12-07 22:24] LABS: PROTHROMBIN TIME 13.4 SECONDS (11.8-14.0)
[2019-12-07 22:40] LABS: ALBUMIN 3.8 GM/DL (3.2-5.2); ALT/SGPT 21 U/L (12-78); BILIRUBIN,DIRECT 0.1 MG/DL (0.0-0.2); BILIRUBIN,TOTAL 0.3 MG/DL (0.2-1.0); BLOOD UREA NITROGEN 12 MG/DL (7-18); CALCIUM LEVEL 9.1 MG/DL (8.8-10.2); CARBON DIOXIDE LEVEL 31 MEQ/L (21-32); CHLORIDE LEVEL 107 MEQ/L (98-107); CK-MB VALUE MASS 1.5 NG/ML (<3.6); CPK CREATINE PHOSPHOKINASE 226 U/L (26-192); CREATININE FOR GFR 1.07 MG/DL (0.55-1.30); GLOMERULAR FILTRATION RATE 54.6 (>45); GLUCOSE, FASTING 91 MG/DL (70-100); MB/CK RELATIVE INDEX 0.66 (< OR =4); NT-PRO BNP 160 PG/ML (<125); POTASSIUM SERUM 3.7 MEQ/L (3.5-5.1); SODIUM LEVEL 142 MEQ/L (136-145); TROPONIN I < 0.02 NG/ML (< 0.10)
[2019-12-07] MEDS ORDERED: IPRATROPIUM 0.5MG/ALBUTEROL 2.5MG INH SOL UD 3ML (DUONEB) NEB ONE (23:15)
--- NOTE | 2019-12-07 23:20 | REPVR ---
PROCEDURE INFORMATION: Exam: XR Chest, 2 Views Exam date and time: 12/07/2019 11:12 PM Age: 64 years old Clinical indication: Cough and dyspnea; Additional info: Dyspnea/cough TECHNIQUE: Imaging protocol: XR of the chest Views: 2 views. COMPARISON: CR Ribs uni W-PA CHEST ONLY 04/25/2019 12:19 PM FINDINGS: Lungs: Degree of inflation of the lungs is normal. No evidence of pulmonary edema. No focal airspace process. No concerning parenchymal lung mass. Pleural space: No pleural effusion or pneumothorax. Heart/Mediastinum: Cardiac silhouette appears normal. No mediastinal adenopathy or hilar mass. Bones/joints: Osseous structures show no acute or concerning abnormality. IMPRESSION: No active or focal cardiopulmonary process. Electronically signed by: Олег Birmingham On 12/07/2019 23:19:50 PM
[2019-12-07] MEDS ORDERED: PRED20TA PO (23:49)
[2019-12-08 00:02] VITALS: BP 158/72
--- NOTE | 2019-12-14 09:10 | ECGEPIP ---
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
== END 2019-12-08 00:05 | disposition home or self-care (01) ==
LOC: M ED 20:43
DX: J06.9 Acute upper respiratory infection, unspecified (principal); R94.31 Abnormal electrocardiogram [ECG] [EKG]; K76.0 Fatty (change of) liver, not elsewhere classified; M85.80 Other specified disorders of bone density and structure, unspecified site; F20.9 Schizophrenia, unspecified; B18.2 Chronic viral hepatitis C; F17.200 Nicotine dependence, unspecified, uncomplicated; Z88.0 Allergy status to penicillin; Z79.899 Other long term (current) drug therapy; Z79.51 Long term (current) use of inhaled steroids
CPT/HCPCS: 71046; 80048; 80076; 82550; 82553; 83880; 84443; 84484; 85025; 85610; 87486; 87581; 87633; 87798; 93005; 93041; 94640; 94760; 96374; 99284; J2930

== ENCOUNTER → 2020-01-05 | Outpatient (REF) | payer MEDICARE, MEDICAID ==
[~2020-01-05] MED LIST changes: +ATOR1TAB19; +PRED20TA PO
[2020-01-05 15:09] LABS: ALBUMIN 3.7 GM/DL (3.2-5.2); BILIRUBIN,TOTAL 0.3 MG/DL (0.2-1.0); CALCIUM LEVEL 9.5 MG/DL (8.8-10.2); CHOLESTEROL RISK RATIO 2.632 (<5); CREATININE FOR GFR 0.99 MG/DL (0.55-1.30); GLOMERULAR FILTRATION RATE 59.7 (>45); POTASSIUM SERUM 4.1 MEQ/L (3.5-5.1); TOTAL 25(OH) VITAMIN D 26.2 NG/ML (30.0-100.0)
== END ==
LOC: M PLALAB 10:54
PROVIDERS: ATTEND Nurse Practitioner Family
DX: E78.2 Mixed hyperlipidemia (principal); M85.80 Other specified disorders of bone density and structure, unspecified site

== ENCOUNTER → 2020-11-28 | Outpatient (CLI) | payer MEDICARE, MEDICAID ==
--- NOTE | 2020-11-28 16:19 | REPMRS ---
Patient History The patient states she had a clinical breast exam in 2020. Family history of breast cancer at age 44 in daughter. No Hormone Replacement Therapy No breast complaints today Patient signed the MRS sheet 1st covid vaccine 05/04/20-left arm-Moderna 2nd covid vaccine 06/01/20-left arm Priors on PACS Patient Identification Verified Digital Woman Screen Mammo: November 28, 2020 - Exam #: [id number] Bilateral CC and MLO view(s) were taken. Technologist: Dorota Mendoza, Technologist Prior study comparison: November 25, 2019, bilateral digital woman screen mammo performed at [facility]. September 12, 2018, bilateral digital woman screen mammo performed at [facility]. September 12, 2017, bilateral digital woman screen mammo performed at [facility]. FINDINGS: The breast tissue is almost entirely fat. The Volpara volumetric breast density category is: A. There has been no change in the appearance of the mammogram from the prior studies. There is no interval development of dominant mass, architectural distortion, or grouped microcalcification typical of malignancy. 3-D tomosynthesis shows no additional findings. Assessment: BI-RADS/ACR category 1 mammogram. Negative Mammogram. Recommendation Routine screening mammogram of both breasts in 1 year (for women over age 40). This patient's [facility] Lifetime Breast Cancer RIsk is estimated at 8.6 %. This mammogram was interpreted with the aid of an FDA-approved computer-aided dectection system. Electronically Signed By: Chris Santos MD 11/28/20 [id number]
== END ==
LOC: M WHC 15:04
PROVIDERS: ATTEND Nurse Practitioner Family
DX: Z12.31 Encounter for screening mammogram for malignant neoplasm of breast (principal)

== ENCOUNTER → 2020-12-13 | Outpatient (CLI) | payer MEDICARE, MEDICAID ==
--- NOTE | 2020-12-13 12:09 | REP ---
INDICATION: LUNG SCREENING. COMPARISON: 11/27/2019. TECHNIQUE: Low dose screening CT chest performed without the use of intravenous contrast. FINDINGS: Lungs: Clear, no infiltrate or nodule. Heart: Not enlarged. Thoracic aorta: No aneurysm. Visualized osseous structures: There are degenerative changes of the spine. There has been a prior cholecystectomy. IMPRESSION: Category 1 negative low dose noncontrast CT chest. <Electronically signed by Brian Grigsby > 12/13/20 [id number]
== END ==
LOC: M RAD 10:50
PROVIDERS: ATTEND Nurse Practitioner Family
DX: Z12.2 Encounter for screening for malignant neoplasm of respiratory organs (principal); F17.210 Nicotine dependence, cigarettes, uncomplicated

== ENCOUNTER → 2021-01-10 | Outpatient (CLI) | payer MEDICARE, MEDICAID ==
--- NOTE | 2021-01-10 10:10 | REP ---
INDICATION: PAIN IN RIGHT SHOULDER COMPARISON: None. TECHNIQUE: Internal rotation, external rotation, and Y view. FINDINGS: Cortical irregularity and inferior spurring at the acromioclavicular joint is noted. The glenohumeral joint appears relatively age-appropriate. Subacromial space is normal. No periarticular calcifications or loose bodies identified. IMPRESSION: Mild degenerative changes at the acromioclavicular joint with otherwise age-related changes noted. <Electronically signed by Willis Og > 01/10/21 [id number]
[2021-01-10 14:04] LABS: ALBUMIN 3.7 GM/DL (3.2-5.2); BILIRUBIN,TOTAL 0.4 MG/DL (0.2-1.0); CALCIUM LEVEL 9.6 MG/DL (8.8-10.2); CHOLESTEROL RISK RATIO 3.022 (<5); CREATININE FOR GFR 0.99 MG/DL (0.55-1.30); GLOMERULAR FILTRATION RATE 59.6 (>45); POTASSIUM SERUM 4.2 MEQ/L (3.5-5.1); TOTAL 25(OH) VITAMIN D 30.4 NG/ML (30.0-100.0); TOTAL PROTEIN 7.9 GM/DL (6.4-8.2)
== END ==
LOC: M PLALAB 09:25
PROVIDERS: ATTEND Nurse Practitioner Family
DX: M25.511 Pain in right shoulder (principal); M19.011 Primary osteoarthritis, right shoulder; E78.00 Pure hypercholesterolemia, unspecified

== ENCOUNTER → 2021-07-17 | Outpatient (CLI) | payer MEDICARE, MEDICAID ==
[2021-07-17 15:26] LABS: BASO % 0.4 % (0.0-1.0); EOS # 0.2 10^3/uL (0.0-0.5); EOS % 1.4 % (0.0-3.0); HEMATOCRIT 43.4 % (36.0-47.0); HEMOGLOBIN 14.6 g/dl (12.0-15.5); LYMPH # 4.5 10^3/uL (1.5-5.0); LYMPH % 42.4 % (24.0-44.0); MEAN CORPUSCULAR HEMOGLOBIN 30.9 pg (27.0-33.0); MEAN CORPUSCULAR HGB CONC 33.6 g/dl (32.0-36.5); MEAN CORPUSCULAR VOLUME 91.9 fl (80.0-96.0); MONO # 0.8 10^3/uL (0.0-0.8); NEUTROPHILS % 47.5 % (36.0-66.0); PLATELET COUNT, AUTOMATED 236 10^3/uL (150-450); RED BLOOD COUNT 4.72 10^6/uL (4.00-5.40); WHITE BLOOD COUNT 10.5 10^3/uL (4.0-10.0)
[2021-07-17 15:46] LABS: HEMOGLOBIN A1c 5.8 %
[2021-07-17 16:08] LABS: ALBUMIN 3.8 GM/DL (3.2-5.2); ALT/SGPT 26 U/L (12-78); BILIRUBIN,TOTAL 0.3 MG/DL (0.2-1.0); BLOOD UREA NITROGEN 11 MG/DL (7-18); CALCIUM LEVEL 9.4 MG/DL (8.8-10.2); CARBON DIOXIDE LEVEL 26 MEQ/L (21-32); CHLORIDE LEVEL 107 MEQ/L (98-107); CREATININE FOR GFR 0.89 MG/DL (0.55-1.30); FREE T4 0.79 NG/DL (0.76-1.46); GLOMERULAR FILTRATION RATE > 60.0 (>45); GLUCOSE, FASTING 80 MG/DL (70-100); POTASSIUM SERUM 4.3 MEQ/L (3.5-5.1); SODIUM LEVEL 139 MEQ/L (136-145); TOTAL PROTEIN 7.7 GM/DL (6.4-8.2)
[2021-07-17 16:10] LABS: TOTAL 25(OH) VITAMIN D 21.4 NG/ML (30.0-100.0)
[2021-07-20 20:08] LABS: HEPATITIS C QUANTITATION HCV Not Detected IU/mL (.)
== END ==
LOC: M PLALAB 14:06
PROVIDERS: ATTEND Physician Assistant Medical
DX: E55.9 Vitamin D deficiency, unspecified (principal); E66.9 Obesity, unspecified; E78.2 Mixed hyperlipidemia; J44.9 Chronic obstructive pulmonary disease, unspecified; F41.1 Generalized anxiety disorder; B18.2 Chronic viral hepatitis C; Z79.899 Other long term (current) drug therapy

== ENCOUNTER → 2021-10-30 | Outpatient (CLI) | payer MEDICARE, MEDICAID | LOC: M WHC 10:51 | PROVIDERS: ATTEND Physician Assistant Medical | DX: Z12.31 Encounter for screening mammogram for malignant neoplasm of breast (principal); M85.851 Other specified disorders of bone density and structure, right thigh ==

== ENCOUNTER → 2022-05-14 | Outpatient (CLI) | payer MEDICARE, MEDICAID | LOC: M RAD 10:45 | PROVIDERS: ATTEND Physician Assistant Medical | DX: Z12.2 Encounter for screening for malignant neoplasm of respiratory organs (principal); F17.210 Nicotine dependence, cigarettes, uncomplicated ==

== ENCOUNTER → 2022-06-06 | Outpatient (CLI) | payer MEDICARE, MEDICAID ==
[2022-06-06 11:37] LABS: BASO % 0.3 % (0.0-1.0); EOS # 0.1 10^3/uL (0.0-0.5); EOS % 1.6 % (0.0-3.0); HEMATOCRIT 44.2 % (36.0-47.0); HEMOGLOBIN 14.7 g/dl (12.0-15.5); LYMPH # 3.9 10^3/uL (1.5-5.0); LYMPH % 44.1 % (24.0-44.0); MEAN CORPUSCULAR HEMOGLOBIN 31.2 pg (27.0-33.0); MEAN CORPUSCULAR HGB CONC 33.3 g/dl (32.0-36.5); MEAN CORPUSCULAR VOLUME 93.8 fl (80.0-96.0); MONO # 0.8 10^3/uL (0.0-0.8); MONO % 9.4 % (2.0-8.0); NEUTROPHILS # 3.9 10^3/uL (1.5-8.5); NEUTROPHILS % 44.1 % (36.0-66.0); PLATELET COUNT, AUTOMATED 214 10^3/uL (150-450); RED BLOOD COUNT 4.71 10^6/uL (4.00-5.40); WHITE BLOOD COUNT 8.8 10^3/uL (4.0-10.0)
[2022-06-06 12:05] LABS: ALBUMIN 3.7 G/DL (3.2-5.2); BILIRUBIN,TOTAL 0.4 MG/DL (0.3-1.2); CALCIUM LEVEL 9.9 MG/DL (8.3-10.6); CHOLESTEROL RISK RATIO 2.92 (<5); CREATININE FOR GFR 0.99 MG/DL (0.55-1.30); GLOMERULAR FILTRATION RATE 59.2 (>45); HDL CHOLESTEROL 44.5 MG/DL (>40); LDL CHOLESTEROL 59.3 MG/DL (<100); POTASSIUM SERUM 4.3 MMOL/L (3.5-5.1); PTH INTACT 36.6 PG/ML (18.5-88.0); TOTAL 25(OH) VITAMIN D 28.9 NG/ML (20.0-100.0); TOTAL PROTEIN 7.4 G/DL (5.7-8.2)
== END ==
LOC: M PLALAB 05-10 10:59
PROVIDERS: ATTEND Physician Assistant Medical
DX: E55.9 Vitamin D deficiency, unspecified (principal); E78.2 Mixed hyperlipidemia; J44.9 Chronic obstructive pulmonary disease, unspecified; B18.2 Chronic viral hepatitis C; F41.1 Generalized anxiety disorder; Z86.010 Personal history of colon polyps; Z12.11 Encounter for screening for malignant neoplasm of colon

== ENCOUNTER 2022-11-16 14:28 | Emergency (ER) | payer MEDICARE, MEDICAID ==
[2022-11-16 18:59] VITALS: BP 134/59; TEMP 98.3; O2SAT 96
== END 2022-11-16 18:58 | disposition home or self-care (01) ==
LOC: M ED 14:28
DX: S83.91XA Sprain of unspecified site of right knee, initial encounter (principal); X50.0XXA Overexertion from strenuous movement or load, initial encounter; Y92.89 Other specified places as the place of occurrence of the external cause; Y93.01 Activity, walking, marching and hiking; Y99.8 Other external cause status; F41.9 Anxiety disorder, unspecified; F32.A Depression, unspecified; F20.0 Paranoid schizophrenia; F17.210 Nicotine dependence, cigarettes, uncomplicated; Z88.0 Allergy status to penicillin; Z79.52 Long term (current) use of systemic steroids; Z79.899 Other long term (current) drug therapy; Z79.51 Long term (current) use of inhaled steroids

== ENCOUNTER → 2023-04-09 | Outpatient (CLI) | payer MEDICARE, MEDICAID ==
[2023-04-09 14:11] LABS: BASO % 0.4 % (0.0-1.0); EOS # 0.1 10^3/uL (0.0-0.5); EOS % 1.6 % (0.0-3.0); HEMATOCRIT 44.7 % (36.0-47.0); HEMOGLOBIN 14.6 g/dl (12.0-15.5); LYMPH # 3.1 10^3/uL (1.5-5.0); LYMPH % 34.2 % (24.0-44.0); MEAN CORPUSCULAR HEMOGLOBIN 31.8 pg (27.0-33.0); MEAN CORPUSCULAR HGB CONC 32.7 g/dl (32.0-36.5); MEAN CORPUSCULAR VOLUME 97.4 fl (80.0-96.0); MONO # 0.8 10^3/uL (0.0-0.8); MONO % 9.3 % (2.0-8.0); NEUTROPHILS # 4.9 10^3/uL (1.5-8.5); NEUTROPHILS % 54.1 % (36.0-66.0); PLATELET COUNT, AUTOMATED 242 10^3/uL (150-450); RED BLOOD COUNT 4.59 10^6/uL (4.00-5.40)
[2023-04-09 14:35] LABS: BILIRUBIN,TOTAL 0.3 MG/DL (0.3-1.2); CALCIUM LEVEL 9.5 MG/DL (8.3-10.6); CREATININE FOR GFR 0.99 MG/DL (0.55-1.30); GLOMERULAR FILTRATION RATE 59.2 (>45); POTASSIUM SERUM 3.9 MMOL/L (3.5-5.1); TOTAL PROTEIN 7.5 G/DL (5.7-8.2)
[2023-04-09 14:38] LABS: FREE T4 0.9 NG/DL (0.89-1.76); THYROID STIMULATING HORMONE 4.178 uIU/ML (0.55-4.78)
[2023-04-10 14:08] LABS: HEPATITIS C QUANTITATION HCV Not Detected IU/mL (.)
== END ==
LOC: M PLALAB 11:22
PROVIDERS: ATTEND Physician Assistant Medical
DX: E78.2 Mixed hyperlipidemia (principal); B18.2 Chronic viral hepatitis C; F41.1 Generalized anxiety disorder; Z86.010 Personal history of colon polyps; Z12.11 Encounter for screening for malignant neoplasm of colon; J06.9 Acute upper respiratory infection, unspecified

== ENCOUNTER → 2023-06-18 | Outpatient (REF) | payer MEDICARE, MEDICAID | LOC: M SFHCWAGY 13:33 | PROVIDERS: ATTEND Nurse Practitioner Family | DX: Z12.4 Encounter for screening for malignant neoplasm of cervix (principal) | CPT/HCPCS: 87624; G0123 ==

== ENCOUNTER → 2023-06-18 | Outpatient (CLI) | payer MEDICARE, MEDICAID | LOC: M WHC 09:43 | PROVIDERS: ATTEND Nurse Practitioner Family | DX: Z12.31 Encounter for screening mammogram for malignant neoplasm of breast (principal) ==

== ENCOUNTER → 2023-12-20 | Outpatient (CLI) | payer MEDICARE, MEDICAID | LOC: M WHC 09:33 | PROVIDERS: ATTEND Physician Assistant Medical | DX: M81.0 Age-related osteoporosis without current pathological fracture (principal) ==

== ENCOUNTER → 2024-02-05 | Outpatient (CLI) | payer MEDICARE, MEDICAID | LOC: M RAD 15:12 | PROVIDERS: ATTEND Physician Assistant Medical | DX: F17.210 Nicotine dependence, cigarettes, uncomplicated (principal) ==

== ENCOUNTER → 2024-03-19 | Outpatient (CLI) | payer MEDICARE, MEDICAID | LOC: M RAD 09:37 | PROVIDERS: ATTEND Physician Assistant Medical | DX: Z87.891 Personal history of nicotine dependence (principal) ==

== ENCOUNTER 2024-04-07 10:29 | Inpatient (IN) | payer MEDICAID, MEDICARE ==
[~2024-04-07] VITALS: Ht 165.1 cm; Wt 93.3 kg
[~2024-04-07 10:29] MED LIST changes: -ATOR1TAB19; +ATOR1TAB19 PO
[2024-04-07 11:58] LABS: HEMATOCRIT 42.8 % (36.0-47.0); HEMOGLOBIN 14.7 g/dl (12.0-15.5); MEAN CORPUSCULAR HEMOGLOBIN 32.2 pg (27.0-33.0); MEAN CORPUSCULAR HGB CONC 34.3 g/dl (32.0-36.5); MEAN CORPUSCULAR VOLUME 93.7 fl (80.0-96.0); PLATELET COUNT, AUTOMATED 234 10^3/uL (150-450); RED BLOOD COUNT 4.57 10^6/uL (4.00-5.40); WHITE BLOOD COUNT 15.6 10^3/uL (4.0-10.0)
[2024-04-07 12:17] LABS: ETHYL ALCOHOL (ETHANOL) 0.003 % (0.000-0.010)
[2024-04-07 12:18] LABS: SALICYLATE LEVEL < 3.0 MG/DL (<30)
[2024-04-07 12:19] LABS: ALBUMIN 4.2 G/DL (3.2-5.2); ALKALINE PHOSPHATASE 86 U/L (35-104); ALT/SGPT 23 U/L (7.0-40); AST/SGOT 33 U/L (<34); BILIRUBIN,DIRECT 0.2 MG/DL (<0.4); BILIRUBIN,TOTAL 0.6 MG/DL (0.3-1.2); BLOOD UREA NITROGEN 15 MG/DL (9-23); CARBON DIOXIDE LEVEL 28 MMOL/L (20-31); CHLORIDE LEVEL 102 MMOL/L (98-107); CREATININE FOR GFR 0.95 MG/DL (0.55-1.30); GLOMERULAR FILTRATION RATE > 60.0 (>39); GLUCOSE, FASTING 115 MG/DL (74-106); SODIUM LEVEL 138 MMOL/L (136-145); TOTAL PROTEIN 8.2 G/DL (5.7-8.2)
[2024-04-07 12:21] LABS: THYROID STIMULATING HORMONE 3.391 uIU/ML (0.55-4.78)
[2024-04-07] MEDS ORDERED: CITA40TA7 PO (13:31)
[2024-04-07] MEDS ORDERED: OXYB5TAB14 PO (13:33)
[2024-04-07] MEDS ORDERED: VENTAER INH (13:34)
[2024-04-07] MEDS ORDERED: HOME MED LIST COMPLETE! XX SCH (13:35)
[2024-04-07 14:10] LABS: AMPHETAMINES LEVEL URINE NEGATIVE (NEGATIVE); BARBITURATES URINE NEGATIVE (NEGATIVE); BENZODIAZEPINES URINE NEGATIVE (NEGATIVE); CANNABINOIDS URINE NEGATIVE (NEGATIVE); COCAINE METABOLITE URINE NEGATIVE (NEGATIVE); METHADONE URINE NEGATIVE (NEGATIVE); OPIATES URINE NEGATIVE (NEGATIVE); PHENCYCLIDINE URINE NEGATIVE (NEGATIVE)
[2024-04-07 14:27] LABS: KETONE, URINE AUTO RFX TRACE mg/dL (NEGATIVE); MUCUS, URINE RFX SMALL (NEGATIVE); NITRITE, URINE AUTO RFX NEGATIVE (NEGATIVE); RBC, URINE AUTO RFX 22 /HPF (0-3); SQUAM EPITHELIAL CELL UR AURFX 0 /HPF (0-6)
[2024-04-07 14:36] LABS: LEUKOCYTE ESTERASE UR AUTO RFX 2+ (NEGATIVE); WBC, URINE AUTO RFX TNTC /HPF (0-3)
[2024-04-07] MEDS: NICOTINE 21MG/24HR 1 EA TRANSDERMAL TD ONE (16:14)
[2024-04-07] MEDS: CIPROFLOXACIN 500MG TABLET PO ONE (16:41)
[2024-04-07] MEDS: NYSTATIN 100,000 UNITS/GM TOPICAL PWD 15GM TOP PRN (16:41)
[2024-04-07 17:11] VITALS: BP 135/63; TEMP 97.4; O2SAT 95
[2024-04-07] MEDS: CitaloPRAM (CeleXA) 20 MG TAB PO SCH (21:00)
[2024-04-08] MEDS ORDERED: MOM 30ML SUSPENSION UDC PO PRN (00:15)
[2024-04-08] MEDS ORDERED: MAALOX 30 ML SUSP *UDC PO PRN (00:15)
[2024-04-08] MEDS ORDERED: diphenhydrAMINE 25MG CAP PO PRN (00:15)
[2024-04-08] MEDS ORDERED: IBUPROFEN 400MG TAB PO PRN (00:15)
[2024-04-08] MEDS: OLANZapine ORAL DISINTEGRATING TAB 5MG PO PRN (04:17)
[2024-04-08] MEDS: ACETAMINOPHEN 325 MG TAB PO PRN (04:17)
[2024-04-08] MEDS: ALBUTEROL 90 MCG/ACT 8GM HFA INHALER INH PRN (04:25)
[2024-04-08 06:35] VITALS: BP 145/66; TEMP 97.4; O2SAT 95
[2024-04-08] MEDS: oxyBUTYnin 5 MG TAB PO SCH (09:47)
[2024-04-08] MEDS: ATORVASTATIN 10 MG TAB PO SCH (09:47)
[2024-04-08] MEDS: NICOTINE 14 MG/24 HR TRANSDERMAL TD SCH (09:48)
[2024-04-08] MEDS: OLANZapine ORAL DISINTEGRATING TAB 5MG PO ONE (10:05)
[2024-04-08] MEDS: CEFDINIR 300 MG CAP (OMNICEF) PO SCH (12:30)
[2024-04-08 14:59] VITALS: BP 121/80; TEMP 97.8; O2SAT 96
[2024-04-08] MEDS: NYSTATIN 100,000 UNITS/GM TOPICAL PWD 15GM TOP SCH (20:29)
[2024-04-08] MEDS: traZODone 50 MG TAB PO PRN (20:29)
[2024-04-09 06:28] VITALS: BP 121/68; TEMP 97.5; O2SAT 95
[2024-04-09] MEDS: POLYVINYL ALCOHOL OPHTH SOLN 15ML (LIQUITEARS) OU PRN (15:22)
[2024-04-09 15:26] VITALS: BP 140/76; TEMP 98.3; O2SAT 99
[2024-04-09] MEDS ORDERED: ZYPR10TA PO (19:02)
[2024-04-09] MEDS ORDERED: CITA40TA7 PO (19:02)
[2024-04-09] MEDS ORDERED: VENTAER INH (19:02)
[2024-04-09] MEDS ORDERED: OXYB5TAB14 PO (19:02)
[2024-04-09] MEDS ORDERED: CEFD300CAP PO (19:02)
[2024-04-09] MEDS ORDERED: ARTIDRO4 OU (19:02)
[2024-04-09] MEDS ORDERED: ATOR1TAB19 PO (19:02)
[2024-04-09] MEDS ORDERED: NYST10006 TOP (19:04)
[2024-04-09] MEDS: OLANZapine 10 MG TAB PO SCH (20:09)
[2024-04-10 06:12] VITALS: BP 160/90; TEMP 97.1; O2SAT 96
[2024-04-11] MEDS ORDERED: CELE40TA PO (17:09)
[2024-04-11] MEDS ORDERED: ARTIDRO4 OD (17:09)
[2024-04-11] MEDS ORDERED: CEFD1CAP9 PO (17:09)
[2024-04-11] MEDS ORDERED: VENTAER INH (17:09)
[2024-04-11] MEDS ORDERED: NYST1POW3 TOP (17:09)
== END 2024-04-10 12:19 | disposition home or self-care (01) | DRG 885 ==
LOC: M ED 10:29 → M ED INP 14:59 → M PSY 16:52
PROVIDERS: ADMIT Psychiatry & Neurology Psychiatry; ATTEND Psychiatry & Neurology Psychiatry
DX: F20.9 Schizophrenia, unspecified (principal); N39.0 Urinary tract infection, site not specified; F17.200 Nicotine dependence, unspecified, uncomplicated; E78.5 Hyperlipidemia, unspecified; J45.909 Unspecified asthma, uncomplicated; F41.9 Anxiety disorder, unspecified; N32.81 Overactive bladder; Z90.49 Acquired absence of other specified parts of digestive tract; Z91.148 Patient's other noncompliance with medication regimen for other reason; Z79.899 Other long term (current) drug therapy; Z88.0 Allergy status to penicillin

== ENCOUNTER 2024-04-11 10:29 | Inpatient (IN) | payer MEDICARE, MEDICAID ==
[~2024-04-11] VITALS: Ht 162.6 cm; Wt 93.2 kg
[~2024-04-11 10:29] MED LIST changes: +ARTIDRO4 OU; +CEFD300CAP PO; +CITA40TA7 PO; +NYST10006 TOP; +OXYB5TAB14 PO; +VENTAER INH
[2024-04-11 15:12] LABS: APPEARANCE, URINE CLEAR (CLEAR); BACTERIA, URINE AUTO NEGATIVE (NEGATIVE); BILIRUBIN, URINE AUTO NEGATIVE (NEGATIVE); BLOOD, URINE BLOOD 2+ (NEGATIVE); COLOR, URINE YELLOW (YELLOW); GLUCOSE, URINE (UA) AUTO NEGATIVE (NEGATIVE); KETONE, URINE AUTO NEGATIVE (NEGATIVE); LEUKOCYTE ESTERASE, URINE AUTO NEGATIVE (NEGATIVE); NITRITE, URINE AUTO NEGATIVE (NEGATIVE); PROTEIN, URINE AUTO NEGATIVE (NEGATIVE); RBC, URINE AUTO 7 /HPF (0-3); SPECIFIC GRAVITY URINE AUTO 1.006 (1.002-1.035); SQUAMOUS EPITHELIAL CELL UR AU 1 /HPF (0-6); UROBILINOGEN, URINE AUTO 0.2 mg/dL (0.0-2.0); WBC, URINE AUTO 0 /HPF (0-3)
[2024-04-11 15:45] VITALS: BP 122/71; TEMP 98.1; O2SAT 96
[2024-04-11] MEDS ORDERED: ARTIDRO4 OD (17:09)
[2024-04-11] MEDS ORDERED: NYST1POW3 TOP (17:09)
[2024-04-11] MEDS ORDERED: CEFD1CAP9 PO (17:09)
[2024-04-11] MEDS ORDERED: CELE40TA PO (17:09)
[2024-04-11] MEDS ORDERED: VENTAER INH (17:09)
[2024-04-11] MEDS ORDERED: HOME MED LIST COMPLETE! XX SCH (17:10)
[2024-04-11] MEDS: ALBUTEROL 90 MCG/ACT 8GM HFA INHALER INH SCH (20:00)
[2024-04-11] MEDS: oxyBUTYnin 5 MG TAB PO SCH (21:00)
[2024-04-11] MEDS: OLANZapine 10 MG TAB PO SCH (21:00)
[2024-04-11] MEDS: CEFDINIR 300 MG CAP (OMNICEF) PO SCH (21:00)
[2024-04-11] MEDS: NYSTATIN 100,000 UNITS/GM TOPICAL PWD 15GM TOP SCH (21:00)
[2024-04-11] MEDS ORDERED: ACETAMINOPHEN 325 MG TAB PO PRN (22:15)
[2024-04-11] MEDS ORDERED: MOM 30ML SUSPENSION UDC PO PRN ×2 (22:15)
[2024-04-11] MEDS ORDERED: traZODone 50 MG TAB PO PRN (22:15)
[2024-04-11] MEDS ORDERED: MAALOX 30 ML SUSP *UDC PO PRN (22:15)
[2024-04-11] MEDS ORDERED: POLYVINYL ALCOHOL OPHTH SOLN 15ML (LIQUITEARS) OU PRN (22:20)
[2024-04-12 07:03] VITALS: BP 135/57; TEMP 97.5; O2SAT 93
[2024-04-12] MEDS: CitaloPRAM (CeleXA) 20 MG TAB PO SCH (08:36)
[2024-04-12] MEDS: ATORVASTATIN 10 MG TAB PO SCH (08:36)
[2024-04-12] MEDS ORDERED: ALBUTEROL 90 MCG/ACT 8GM HFA INHALER INH PRN (10:15)
[2024-04-12] MEDS: NICOTINE 21MG/24HR 1 EA TRANSDERMAL TD SCH (11:39)
[2024-04-12] MEDS: POLYVINYL ALCOHOL OPHTH SOLN 15ML (LIQUITEARS) OD SCH (12:03)
[2024-04-12 14:36] VITALS: BP 128/60; TEMP 98.6; O2SAT 98
[2024-04-12] MEDS: OLANZapine 10 MG TAB PO SCH (20:25)
[2024-04-12] MEDS: oxyBUTYnin 5 MG TAB PO SCH (20:25)
[2024-04-12] MEDS: ACETAMINOPHEN 325 MG TAB PO PRN (22:14)
[2024-04-13 06:26] VITALS: BP 132/66; TEMP 97.6; O2SAT 95
[2024-04-13] MEDS: ATORVASTATIN 10 MG TAB PO SCH (09:17)
[2024-04-13] MEDS: CitaloPRAM (CeleXA) 20 MG TAB PO SCH (09:17)
[2024-04-13] MEDS: IBUPROFEN 400MG TAB PO PRN (10:01)
[2024-04-13 15:17] VITALS: BP 128/84; TEMP 98.6; O2SAT 96
[2024-04-13] MEDS: diphenhydrAMINE 25MG CAP PO PRN (23:32)
[2024-04-14 06:38] VITALS: BP 116/78; TEMP 97.2; O2SAT 95
[2024-04-14] MEDS: OLANZapine 2.5MG TABLET PO SCH (11:52)
[2024-04-14 14:49] VITALS: BP 135/61; TEMP 97.4; O2SAT 96
[2024-04-15 06:13] VITALS: BP 131/58; TEMP 97.6; O2SAT 96
[2024-04-15] MEDS ORDERED: traZODone 25MG PER 1/2 TABLET PO PRN (14:45)
[2024-04-15 16:31] VITALS: BP 131/76; TEMP 97; O2SAT 98
[2024-04-16 06:31] VITALS: BP 144/74; TEMP 97.1; O2SAT 93
[2024-04-16] MEDS: OLANZapine 5 MG TAB PO SCH (08:39)
[2024-04-16] MEDS: diphenhydrAMINE 50MG CAP PO ONE (14:51)
[2024-04-16] MEDS: OLANZapine 2.5MG TABLET PO SCH (14:51)
[2024-04-16 16:19] VITALS: BP 120/56; TEMP 97; O2SAT 97
[2024-04-17 06:45] VITALS: BP 126/57; TEMP 98; O2SAT 95
[2024-04-17] MEDS: diphenhydrAMINE 50MG CAP PO ONE (10:35)
[2024-04-17 17:08] VITALS: BP 118/56; TEMP 98.7; O2SAT 98
[2024-04-18 06:28] VITALS: BP 146/70; TEMP 97.5; O2SAT 96
[2024-04-18 15:13] VITALS: BP 130/75; TEMP 98; O2SAT 97
[2024-04-19 06:53] VITALS: BP 136/69; TEMP 96.9; O2SAT 96
[2024-04-19 16:09] VITALS: BP 111/59; TEMP 98.4; O2SAT 95
[2024-04-20 06:18] VITALS: BP 157/89; TEMP 97.3; O2SAT 97
[2024-04-20 15:35] VITALS: BP 133/69; TEMP 97.9; O2SAT 99
[2024-04-21 06:43] VITALS: BP 136/77; TEMP 97; O2SAT 98
[2024-04-21] MEDS ORDERED: TRAZ-252 PO (08:04)
[2024-04-21] MEDS ORDERED: NICO21PAT TD (08:04)
== END 2024-04-21 12:13 | disposition home or self-care (01) | DRG 885 ==
LOC: M ED 10:29 → M ED INP 14:42 → M PSY 15:48
PROVIDERS: ADMIT Psychiatry & Neurology Psychiatry; ATTEND Psychiatry & Neurology Psychiatry
DX: F20.9 Schizophrenia, unspecified (principal); F17.210 Nicotine dependence, cigarettes, uncomplicated; N32.81 Overactive bladder; M85.80 Other specified disorders of bone density and structure, unspecified site; J45.909 Unspecified asthma, uncomplicated; E78.5 Hyperlipidemia, unspecified; Z79.899 Other long term (current) drug therapy; Z88.0 Allergy status to penicillin; L27.0 Generalized skin eruption due to drugs and medicaments taken internally; T43.595A Adverse effect of other antipsychotics and neuroleptics, initial encounter

== ENCOUNTER 2024-04-26 11:26 | Emergency (ER) | payer MEDICARE, MEDICAID ==
[~2024-04-26] VITALS: Ht 162.6 cm; Wt 99.5 kg
[~2024-04-26 11:26] MED LIST changes: +ARTIDRO4 OD; +CEFD1CAP9 PO; +CELE40TA PO; +NICO21PAT TD; +NYST1POW3 TOP; +TRAZ-252 PO
[2024-04-26 11:34] VITALS: BP 126/57; TEMP 98.6; O2SAT 95
[2024-04-26] MEDS: ACETAMINOPHEN 325 MG TAB PO ONE (11:50)
== END 2024-04-26 13:05 | disposition home or self-care (01) ==
LOC: M ED 11:26 → EDBD 11:26 → M ED 13:05
DX: S42.142A Displaced fracture of glenoid cavity of scapula, left shoulder, initial encounter for closed fracture (principal); Y92.9 Unspecified place or not applicable; Y93.9 Activity, unspecified; Y99.9 Unspecified external cause status; W00.0XXA Fall on same level due to ice and snow, initial encounter; F17.210 Nicotine dependence, cigarettes, uncomplicated; Z88.0 Allergy status to penicillin; Z79.51 Long term (current) use of inhaled steroids; Z79.899 Other long term (current) drug therapy

== ENCOUNTER → 2024-06-10 | Outpatient (CLI) | payer MEDICARE, MEDICAID | LOC: M SOG 07:56 | PROVIDERS: ATTEND Physician Assistant | DX: S42.142A Displaced fracture of glenoid cavity of scapula, left shoulder, initial encounter for closed fracture (principal); M25.512 Pain in left shoulder; X58.XXXA Exposure to other specified factors, initial encounter; Y92.9 Unspecified place or not applicable; Y93.9 Activity, unspecified; Y99.9 Unspecified external cause status ==

== ENCOUNTER → 2024-06-18 | Outpatient (CLI) | payer MEDICARE, MEDICAID ==
[2024-06-18 15:29] LABS: BASO % 0.4 % (0.0-1.0); EOS # 0.2 10^3/uL (0.0-0.5); EOS % 2.1 % (0.0-3.0); HEMOGLOBIN 14.2 g/dl (12.0-15.5); LYMPH # 4.2 10^3/uL (1.5-5.0); MEAN CORPUSCULAR HEMOGLOBIN 31.9 pg (27.0-33.0); MEAN CORPUSCULAR VOLUME 96.6 fl (80.0-96.0); MONO # 0.9 10^3/uL (0.0-0.8); MONO % 8.1 % (2.0-8.0); NEUTROPHILS # 5.2 10^3/uL (1.5-8.5); PLATELET COUNT, AUTOMATED 230 10^3/uL (150-450); RED BLOOD COUNT 4.45 10^6/uL (4.00-5.40); WHITE BLOOD COUNT 10.6 10^3/uL (4.0-10.0)
[2024-06-18 15:30] LABS: ALBUMIN 3.9 G/DL (3.2-5.2); ALKALINE PHOSPHATASE 120 U/L (35-104); ALT/SGPT 14 U/L (7.0-40); AST/SGOT 13 U/L (<34); BILIRUBIN,TOTAL 0.3 MG/DL (0.3-1.2); BLOOD UREA NITROGEN 15 MG/DL (9-23); CALCIUM LEVEL 9.6 MG/DL (8.3-10.6); CARBON DIOXIDE LEVEL 30 MMOL/L (20-31); CHLORIDE LEVEL 106 MMOL/L (98-107); CREATININE FOR GFR 0.94 MG/DL (0.55-1.30); GLOMERULAR FILTRATION RATE > 60.0 (>39); GLUCOSE, FASTING 106 MG/DL (74-106); POTASSIUM SERUM 4.4 MMOL/L (3.5-5.1); PTH INTACT 54.6 PG/ML (18.5-88.0); SODIUM LEVEL 144 MMOL/L (136-145); TOTAL PROTEIN 7.7 G/DL (5.7-8.2)
[2024-06-18 15:34] LABS: FREE T4 0.99 NG/DL (0.89-1.76)
[2024-06-18 15:35] LABS: TOTAL 25(OH) VITAMIN D 42.9 NG/ML (20.0-100.0)
[2024-06-22 13:18] LABS: HCV RNA QUANTITATION <15 NOT DETECTED IU/mL (NOT DETECTED); HCV RNA log10 <1.18 NOT DETECTED Log IU/mL (NOT DETECTED)
== END ==
LOC: M PLALAB 10:52
PROVIDERS: ATTEND Physician Assistant Medical
DX: M62.838 Other muscle spasm (principal); M62.521 Muscle wasting and atrophy, not elsewhere classified, right upper arm; M62.541 Muscle wasting and atrophy, not elsewhere classified, right hand; B18.2 Chronic viral hepatitis C; J44.9 Chronic obstructive pulmonary disease, unspecified; E66.9 Obesity, unspecified; E55.9 Vitamin D deficiency, unspecified; E78.2 Mixed hyperlipidemia; M19.011 Primary osteoarthritis, right shoulder

== ENCOUNTER → 2024-08-11 | Outpatient (CLI) | payer MEDICARE, MEDICAID | LOC: M SOG 07:13 | PROVIDERS: ATTEND Physician Assistant | DX: M25.512 Pain in left shoulder (principal) ==

== ENCOUNTER → 2025-01-28 | Outpatient (CLI) | payer MEDICARE, MEDICAID ==
[2025-01-28 11:14] LABS: BASO # 0.0 10^3/uL (0.0-0.2); BASO % 0.4 % (0.0-1.0); EOS # 0.2 10^3/uL (0.0-0.5); EOS % 2.1 % (0.0-3.0); LYMPH # 4.0 10^3/uL (1.5-5.0); LYMPH % 41.5 % (24.0-44.0); MONO # 1.0 10^3/uL (0.0-0.8); MONO % 10.1 % (2.0-8.0); NEUTROPHILS # 4.4 10^3/uL (1.5-8.5); NEUTROPHILS % 45.6 % (36.0-66.0); PLATELET COUNT, AUTOMATED 249 10^3/uL (150-450)
[2025-01-28 11:19] LABS: CPK CREATINE PHOSPHOKINASE 249.0 U/L (34-145)
[2025-01-28 11:20] LABS: ALT/SGPT 14.0 U/L (7.0-40); AST/SGOT 18.0 U/L (<34); C REACTIVE PROTEIN QUANTITATIV 0.74 MG/DL (<1.0); CALCIUM LEVEL 9.4 MG/DL (8.3-10.6); CARBON DIOXIDE LEVEL 31.0 MMOL/L (20-31); CHLORIDE LEVEL 105.0 MMOL/L (98-107); CHOLESTEROL LEVEL 160.0 MG/DL (<200); CHOLESTEROL RISK RATIO 3.01 (<5); CREATININE FOR GFR 0.95 MG/DL (0.55-1.30); GLOMERULAR FILTRATION RATE 64.1 (>39); LDL CHOLESTEROL 84.4 MG/DL (<100); NON-HDL-C 107.0 MG/DL; POTASSIUM SERUM 3.7 MMOL/L (3.5-5.1); RHEUMATOID FACTOR QUANT 4.5 IU/ML (<14); SODIUM LEVEL 141.0 MMOL/L (136-145); TRIGLYCERIDES LEVEL 113.0 MG/DL (<150)
[2025-01-28 11:24] LABS: FREE T4 1.21 NG/DL (0.89-1.76)
== END ==
LOC: M PLALAB 08:40
PROVIDERS: ATTEND Physician Assistant Medical
DX: E78.2 Mixed hyperlipidemia (principal); M65.341 Trigger finger, right ring finger; M65.939 Unspecified synovitis and tenosynovitis, unspecified forearm; J44.9 Chronic obstructive pulmonary disease, unspecified; E03.9 Hypothyroidism, unspecified

== ENCOUNTER → 2025-03-23 | Outpatient (CLI) | payer MEDICARE, MEDICAID | LOC: M WHC 12:33 | PROVIDERS: ATTEND Nurse Practitioner Family | DX: Z00.00 Encounter for general adult medical examination without abnormal findings (principal); Z12.31 Encounter for screening mammogram for malignant neoplasm of breast; R92.313 Mammographic fatty tissue density, bilateral breasts; N73.9 Female pelvic inflammatory disease, unspecified; Z79.899 Other long term (current) drug therapy ==

== ENCOUNTER → 2025-03-23 | Outpatient (CLI) | payer MEDICARE, MEDICAID ==
[2025-03-23 14:06] LABS: FREE T4 0.98 NG/DL (0.89-1.76)
== END ==
LOC: M PLALAB 12:18
PROVIDERS: ATTEND Physician Assistant Medical
DX: Z00.00 Encounter for general adult medical examination without abnormal findings (principal); N73.9 Female pelvic inflammatory disease, unspecified